=== PATIENT | male | born 1965 | race Caucasian/White ===

== ENCOUNTER 2018-10-29 21:49 | Emergency (ER) | payer OTHER, MEDICAID, SELFPAY ==
[2018-10-29 21:56] VITALS: BP 151/104; PULSE 113; RESP 22; TEMP 36.6; O2SAT 98; BMI 38.4
--- NOTE | 2018-10-29 22:02 | DI.RAD.S_ITS ---
PROCEDURE: XR RIBS LT MIN 3V W CXR1V INDICATIONS: L anterior chest/rib pain after fall TECHNIQUE: 2 views of the left ribs were acquired, along with a single view chest. COMPARISON: None. FINDINGS: Surgical changes and devices: Postoperative changes of the left shoulder. Bones and chest wall: No fractures or dislocations. No suspicious bony lesions. Overlying soft tissues appear unremarkable. Lungs and pleura: No pleural effusions or pneumothorax. Lungs appear clear. Mediastinum: Mediastinal contours appear normal. Heart size is normal. IMPRESSION: No acute cardiopulmonary abnormalities. No acute rib fractures identified. Dictated by: Jer Nassar M.D. on 10/30/2018 at 8:50 Approved by: Jer Nassar M.D. on 10/30/2018 at 8:51
[2018-10-29 22:48] VITALS: BP 130/81; PULSE 93; RESP 19; O2SAT 92
--- NOTE | 2018-10-29 22:52 | ED_ITS ---
HPI - Back Pain/Injury General Chief Complaint: Back Pain/Injury Stated Complaint: Fell, hurt side Time Seen by Provider: 10/29/18 21:57 Source: patient Mode of arrival: ambulatory Limitations: no limitations History of Present Illness HPI Narrative: 53-year-old male smoker without significant medical history presents with a chief complaint of left anterior chest pain after a ground level fall in which he landed on his anterior chest. He denies any cough or shortness of breath. He has superficial abrasions and some pain with palpation. He denies any head neck or back pain. He is otherwise well and free of complaints. MD Complaint: fall Onset (ago): minute(s) Duration: constant Similar Symptoms Previously: No Severity: mild Quality: burning Radiation: none Context: fall and trauma Associated symptoms: denies other symptoms Related Data Previous Rx's Medication Instructions Recorded ibuprofen 600 mg PO TID-QID PRN #20 tab 10/29/18 Review of Systems Constitutional Denies chills, Denies fever(s), Denies lethargy and Denies weakness Eyes Denies change in vision, Denies eye discharge, Denies irritation and Denies loss of vision ENT Ears, Nose, Mouth, and Throat: Denies change in voice, Denies neck pain and Denies sore throat Cardiovascular Denies chest pain, Denies irregular heart rhythm, Denies lightheadedness, Denies palpitations, Denies dyspnea, Denies dyspnea on exertion and Denies orthopnea Respiratory Denies cough, Denies dyspnea, Denies dyspnea on exertion and Denies wheezing Gastrointestinal Gastrointestinal: Denies abdominal pain, Denies change in bowel habits, Denies diarrhea, Denies nausea and Denies vomiting Genitourinary Denies hematuria, Denies flank pain, Denies urinary incontinence and Denies urinary urgency Musculoskeletal Denies neck pain Integumentary/Breasts Denies pruritus, Denies erythema, Denies rash and Reports wounds Neurologic Denies confusion, Denies loss of vision and Denies weakness Psychiatric Denies anxiety, Denies confusion, Denies depression, Denies homicidal ideation and Denies suicidal ideation Endocrine Denies palpitations Hematologic/Lymphatic Denies easy bruising Allergic/Immunologic Denies wheezing PFSH Social History Smoking Status: Current every day smoker Social History Smoking Status: Current every day smoker Exam Narrative Exam Narrative: GENERAL: This is a well-nourished, well-developed patient, in mild distress. A and O x3 G CS 15 HEAD: Atraumatic. Normocephalic. No temporal or scalp tenderness. EYES: Pupils equal round and reactive. Extraocular motions intact. No scleral icterus. No injection or drainage. ENT: Nose without bleeding, purulent drainage or septal hematoma. Throat without erythema, tonsillar hypertrophy or exudate. Uvula midline. Airway patent. NECK: Trachea midline. No JVD or lymphadenopathy. Supple, nontender, no meningeal signs. CARDIOVASCULAR: Superficial abrasions to anterior chest, no crepitance or subcu emphysema noted Regular rate and rhythm without murmurs, gallops, or rubs. RESPIRATORY: Clear to auscultation. Breath sounds equal bilaterally. No wheezes, rales, or rhonchi. GASTROINTESTINAL: Abdomen soft, non-tender, nondistended. No hepato- splenomegaly, or palpable masses. No guarding. EXTREMITIES: No clubbing, cyanosis, or edema. No joint tenderness, effusion, or edema noted. BACK: Nontender without deformity or crepitance. No flank tenderness. NEURO: AOx3. SKIN: No rash or erythema. Initial Vital Signs Initial Vital Signs: Vital Signs Temperature 98 F 10/29/18 21:56 Pulse Rate 113 H 10/29/18 21:56 Respiratory Rate 22 10/29/18 21:56 Blood Pressure 151/104 H 10/29/18 21:56 Pulse Oximetry 98 10/29/18 21:56 Course Orders Ordered: ED Orders 10/29/18 22:02 XR ribs LT min 3V w CXR1V Stat Vital Signs - 8 hr 10/29/18 21:56 10/29/18 22:48 10/29/18 23:00 Temperature 98 F Pulse Rate 113 H 93 H 91 H Respiratory Rate 22 19 18 Blood Pressure 151/104 H 118/74 Blood Pressure [Right Arm] 130/81 Pulse Oximetry 98 92 97 MDM - Back Pain/Injury Imaging Data Chest x-ray: Attestation: I personally reviewed and interpreted this imaging study as follows: My impression: no fx, no ptx Discharge Plan Departure Patient Disposition: Home Clinical Impression: Contusion of chest wall Qualifiers: Encounter type: initial encounter Laterality: left Qualified Code(s): S20.212A - Contusion of left front wall of thorax, initial encounter Discharge Date/Time: 10/29/18 23:00 Interventions: ED Discharge Assessment Last Done: 10/29/18 23:00 Instructions: DI for Contusion, DI for Abrasion Activity Restrictions/Additional Instructions: *You have been diagnosed with [left-sided anterior chest wall abrasion and contusion] *What to do: *Take medications as directed: Tylenol or Motrin for pain *Follow up with your primary care provider in 2-3 days, call for an appointment. Let them know you were seen in the Emergency Department and that we ask that you be seen in follow up *Return to ER if you should have any new, worsening or concerning symptoms Radiographic study has been interpreted by an emergency physician. The official diagnosis by radiology will be performed within the next 24 hours and should there be any change in outcome we will notify you of how to proceed. Prescriptions: New ibuprofen 600 mg tablet 600 mg PO TID-QID PRN (Reason: pain) Qty: 20 RF: 0
[2018-10-29 23:00] VITALS: BP 118/74; PULSE 91; RESP 18; O2SAT 97
--- NOTE | 2018-10-29 23:08 | PC.NURSE ---
PT states back pain and anterior chest pain after glf from truck bed. Pt has abrasions to left chest. Pt denies LOC, any head or neck pain or difficulty breathing.
== END 2018-10-29 23:00 | disposition home or self-care (01) ==
PROVIDERS: Emergency Provider Emergency Medicine
DX: S20.212A Contusion of left front wall of thorax, initial encounter (principal); W19.XXXA Unspecified fall, initial encounter
CPT/HCPCS: 71101; 99282; 99283

== ENCOUNTER 2019-03-02 14:02 | Observation (INO) | payer OTHER, MEDICAID, SELFPAY ==
[2019-03-02] VITALS (9 sets, daily range): BP systolic 119–148; BP diastolic 7–92; PULSE 78–118; RESP 14–20; TEMP 36.3–37.2; O2SAT 92–100; BMI 36.9
--- NOTE | 2019-03-02 | DI.ECHO.S_ITS ---
[facility]---------+ [facility] +---------+ : : [address] [place] : : : : [id number] : : : : Phone: [phone] Echocardiogram Report + + :Name: SHAYLA MIRANDA Study Date: 03/03/2019 Height: 69 in : :[facility] Exam Location: [facility] Weight: 250 lb : : Gender: Male BSA: 2.3 m2 : :: 1965 Age: 53 yrs BP: 147/83 mmHg: :Reason For Study: CHEST PAIN : : Performed By: Porfirio Singer : :Referring: JAMILA HERNANDEZ : + + Interpretation Summary Normal sinus rhythm. Normal LV size, wall thickness, wall motion and left ventricular systolic function. Ejection fraction is 60-65%. No evidence of diastolic dysfunction. Normal chamber sizes. No significant valvular abnormalities. Mildly dilated ascending aorta. No prior study for comparison. Procedure: A two-dimensional transthoracic echocardiogram with color flow and Doppler was performed. The study quality was technically adequate. There is no prior echocardiogram noted for this patient. The patient was in normal sinus rhythm during the exam. Left Ventricle: The left ventricle is normal in size. There is normal left ventricular wall thickness. The ejection fraction is estimated to be 60-65%. There are no focal wall motion abnormalities. Right Ventricle: The right ventricle is normal in size and function. Atria: Both atria are normal in size. The interatrial septum is intact with no evidence for an atrial septal defect. Mitral Valve: The mitral valve is normal in structure and function. There is no mitral regurgitation noted. Aortic Valve: The aortic valve is trileaflet. The aortic valve opens well. No aortic regurgitation is present. Tricuspid Valve: The tricuspid valve is normal in structure and function. No tricuspid regurgitation. Pulmonary artery pressures cannot be estimated because of the lack of a measurable TR jet velocity. Pulmonic Valve: The pulmonic valve is not well seen, but is grossly normal. There is trace pulmonic regurgitation. Great Vessels: The aortic root is normal size. The ascending aorta is mildly enlarged. The pulmonary artery is normal size. The IVC is of normal diameter and collapses greater than 50% with a sniff. This suggests a low right atrial pressure of 3 mm Hg. Pericardium/ Pleura There is no pericardial effusion. There is no pleural effusion. MMode/2D Measurements & Calculations LVIDd: 4.6 cm LVOT diam: 2.2 cm LVIDs: 3.2 cm Ao root diam: 3.6 cm FS: 30.7 % Aortic Jxn: 2.9 cm EPSS: 0.97 cm asc Aorta Diam: 3.8 cm IVSd: 0.86 cm Ao Arch Diam (Prox Trans): 2.8 cm LVPWd: 0.98 cm LV hermosillo. diameter/BSA (cm/m^2): 2.0 LV sys. diameter/BSA (cm/m^2): 1.4 LA dimension: 3.4 cm RA long axis: 4.4 cm LA A2 area: 19.2 cm2 RA area: 15.2 cm2 LA A4 area: 13.1 cm2 RA vol: 44.6 ml LA length (vol): 4.1 cm RA : 19.6 ml/m2 LA vol: 52.0 ml IVC diam: 1.5 cm LA vol index: 22.9 ml/m2 Doppler Measurements & Calculations Ao V2 max: 123.0 cm/sec LVOT Max Gagandeep: 88.4 cm/sec Ao V2 mean: 96.7 cm/sec LV V1 max P.1 mmHg Ao max P.1 mmHg LV V1 VTI: 15.4 cm Ao mean P.0 mmHg SUNNI(I,D): 2.9 cm2 Ao V2 VTI: 20.9 cm SUNNI(V,D): 2.8 cm2 sev ratio: 0.74 SUNNI indexed to BSA (cm^2/m^2): 1.3 MV E max gagandeep: 59.4 cm/sec PA V2 max: 72.2 cm/sec MV A max gagandeep: 77.9 cm/sec PA V2 mean: 54.8 cm/sec MV E/A: 0.76 PA mean P.3 mmHg Med Peak E' Gagandeep: 5.7 cm/sec PA pr(Accel): 54.0 mmHg E/E' med: 10.5 PA Accel Time: 0.05 sec Lat Peak E' Gagandeep: 9.3 cm/sec E/E' lat: 6.4 E/e' average: 8.4 MV dec time: 0.22 sec SV(LVOT): 60.6 ml Electronically signed by: Lidia Mendenhall M.D. on Reading Physician:03/03/2019 06:14 PM
--- NOTE | 2019-03-02 14:05 | ED.CHESTPAIN ---
HPI - Chest Pain General Chief Complaint: Chest Pain Stated Complaint: Chest pain Time Seen by Provider: 03/02/19 14:03 Source: patient Mode of arrival: EMS Limitations: no limitations History of Present Illness HPI narrative: Patient is a 53-year-old male who arrived by EMS. He is here for evaluation of chest pain. He was at a doctor's appointment for his father when while they were at that appointment he started to have sharp left-sided retrosternal chest pain. Not worse with palpation or movement. Not worse with breathing. Did become diaphoretic. He was given 2 sprays of nitroglycerin by the office staff which the patient states resolved his symptoms. He has never had anything like this before. Upon my evaluation patient states that he feels much better. No prior cardiac history. Related Data Home Medications Medication Instructions Recorded Confirmed albuterol sulfate [ProAir HFA] 1 puff INHALATION PRN PRN 03/02/19 03/02/19 fluticasone propionate 1 spray INTRANASAL PRN PRN 03/02/19 03/02/19 Allergies Allergy/AdvReac Type Severity Reaction Status Date / Time No Known Drug Allergies Allergy Verified 03/02/19 14:09 Review of Systems Constitutional Constitutional: Denies fever(s) and Denies malaise Cardiovascular Cardiovascular: Reports chest pain and Denies dyspnea Respiratory Respiratory: Denies dyspnea Gastrointestinal Gastrointestinal: Denies abdominal pain, Reports nausea and Denies vomiting Genitourinary Genitourinary: Denies dysuria Musculoskeletal Musculoskeletal: Denies myalgias and Denies arthralgias Integumentary/Breasts Skin/Breast: Denies rash Comments: Diaphoresis Neurologic Neurologic: Denies abnormal speech and Denies behavioral changes Psychiatric Psychiatric: Denies behavioral changes Hematologic/Lymphatic Hematologic/Lymphatic: Denies easy bleeding and Denies easy bruising Allergic/Immunologic Allergic/Immunologic: Denies urticaria Patient History Medical History Medical History COPD (chronic obstructive pulmonary disease) (Acute) Social History Social History Smoking Status: Former smoker alcohol intake frequency: a few times a week Substance Use Type: methamphetamine Exam Initial Vital Signs Initial Vital Signs: Vital Signs Temperature 98.3 F 03/02/19 14:06 Pulse Rate 112 H 03/02/19 14:06 Respiratory Rate 20 03/02/19 14:06 Blood Pressure 140/84 03/02/19 14:06 Pulse Oximetry 97 03/02/19 14:06 Const General: cooperative, diaphoretic and ill appearing Orientation: alert, awake and oriented x3 HENMT Head: normal to inspection and normocephalic Chest Chest: normal inspection of the chest, No crepitus and No tenderness Resp Effort & Inspection: normal respiratory effort Auscultation: clear to auscultation bilaterally Cardio Rate: tachycardic Rhythm: regular rhythm Pulses: radial pulses present GI Inspection: non-distended Palpation: soft, No firm and No tender Back/Spine/Pelvis Back: No CVA tenderness Skin Lesions: no lesions Rashes: no rashes Other: Diaphoretic Neuro General: alert and awake Cognition: normal cognition Speech: speech normal Extrem General: normal to inspection and capillary refill normal Psych Appearance: grossly normal and well kempt Scores GCS [place] coma scale eye opening: Spontaneous [place] coma scale verbal response: Orientated Jeanette coma scale motor response: Obey commands [place] coma scale total score: 15 HEART Score Heart Score history: Highly Suspicious Heart Score EKG: Non-Specific repolarization disturbance Heart Score Age: 45-64 years old Heart Score risk factors: No known risk factors Heart Score troponin: < or = to normal limit Heart Score Total: 4 Course Orders Ordered: ED Orders 03/02/19 13:55 B Type Natriuretic Peptide Stat Complete Blood Count AUTO DIFF Stat Comprehensive Metabolic Panel Stat D Dimer Stat Lipase Stat Partial Thromboplastin Time Stat Procalcitonin Stat Prothrombin Time INR Stat Troponin I Stat 03/02/19 14:04 XR chest 1V Stat EKG-12 Lead Stat 03/02/19 14:45 CT angio chest PE protocol Stat Discontinued Medications Aspirin (Aspirin Chew) 324 mg PO NOW ONE Stop: 03/02/19 18:29 Sodium Chloride (Normal Saline 0.9%) 1,000 mls @ 1,000 mls/hr IV BOLUS ONE Stop: 03/02/19 15:44 Last Infusion: 03/02/19 16:16 Dose: 0 mls/hr Documented by: Admin: 03/02/19 15:03 Dose: 1,000 mls/hr Documented by: SELINA Vital Signs Vital signs: Vital Signs - 8 hr 03/02/19 14:06 03/02/19 14:10 03/02/19 15:00 Temperature 98.3 F Pulse Rate 112 H 118 H 87 Respiratory Rate 20 15 Blood Pressure 140/84 Blood Pressure [Left Arm] 125/92 H 129/81 Blood Pressure [Right Arm] 140/84 Pulse Oximetry 97 92 03/02/19 15:30 03/02/19 16:00 Temperature Pulse Rate 80 78 Respiratory Rate 14 17 Blood Pressure Blood Pressure [Left Arm] 128/72 125/7 L Blood Pressure [Right Arm] Pulse Oximetry 97 100 MDM - Chest Pain Lab Data Attestation: I reviewed the patient's lab results. Result diagrams: 03/02/19 13:55 03/02/19 13:55 Labs: Lab Results 03/02/19 03/02/19 03/02/19 Range/Units 13:55 13:55 13:55 WBC 8.0 (4.5-11.0) X10^3/uL RBC 5.26 (4.5-5.9) X10^6/uL Hgb 15.3 (13.5-17.5) g/dL Hct 44.8 (41-53) % MCV 85.1 (80-100) fL MCH 29.2 (26-34) PG MCHC 34.3 (30-36) % RDW 13.6 (11.6-14.8) % Plt Count 183 (150-400) X10^3/uL Neut % (Auto) 81.2 H (50-75) % Lymph % (Auto) 7.5 L (25-40) % [place] % (Auto) 9.5 (3-14) % Eos % (Auto) 1.3 L (2-4) % Baso % (Auto) 0.5 (0-2) % Neut # (Auto) 6500 (2222-0722) /uL Lymph # (Auto) 600 L (8377-0926) /uL [place] # (Auto) 800 (0-900) /uL Eos # (Auto) 100 (0-450) /uL Baso # (Auto) 0 (0-100) /uL PT 18.6 H (10.1-12.7) SECONDS INR 1.6 H (0.9-1.3) APTT 32 (26.4-36.2) SECONDS D-Dimer (<230) ng/mL Sodium 138 (137-145) mmol/L Potassium 4.0 (3.4-5.1) mmol/L Chloride 98 (98-107) mmol/L Carbon Dioxide 29 (22-32) mmol/L BUN 13 (9-20) mg/dL Creatinine 0.90 (0.66-1.25) mg/dL Estimated GFR > 60.0 (>60) mL/min BUN/Creatinine Ratio 14.4 (6-22) Glucose 99 (70-100) mg/dL Calcium 9.1 (8.4-10.2) mg/dL Total Bilirubin 0.6 (0.2-1.3) mg/dL AST 32 (17-59) IU/L ALT 26 (21-72) IU/L Alkaline Phosphatase 86 (38-126) U/L Troponin I < 0.012 (0.01-0.034) ng/mL B-Natriuretic Peptide < 100 (<100) Total Protein 7.8 (6.3-8.2) g/dL Albumin 4.5 (3.5-5.0) g/dL Globulin 3.3 (1.7-4.1) g/dL Albumin/Globulin Ratio 1.4 (1.0-2.8) Lipase 58 (23-300) U/L Procalcitonin (<0.5) ng/mL 03/02/19 03/02/19 Range/Units 13:55 13:55 WBC (4.5-11.0) X10^3/uL RBC (4.5-5.9) X10^6/uL Hgb (13.5-17.5) g/dL Hct (41-53) % MCV (80-100) fL MCH (26-34) PG MCHC (30-36) % RDW (11.6-14.8) % Plt Count (150-400) X10^3/uL Neut % (Auto) (50-75) % Lymph % (Auto) (25-40) % [place] % (Auto) (3-14) % Eos % (Auto) (2-4) % Baso % (Auto) (0-2) % Neut # (Auto) (8143-6485) /uL Lymph # (Auto) (5367-8713) /uL [place] # (Auto) (0-900) /uL Eos # (Auto) (0-450) /uL Baso # (Auto) (0-100) /uL PT (10.1-12.7) SECONDS INR (0.9-1.3) APTT (26.4-36.2) SECONDS D-Dimer 342 H (<230) ng/mL Sodium (137-145) mmol/L Potassium (3.4-5.1) mmol/L Chloride (98-107) mmol/L Carbon Dioxide (22-32) mmol/L BUN (9-20) mg/dL Creatinine (0.66-1.25) mg/dL Estimated GFR (>60) mL/min BUN/Creatinine Ratio (6-22) Glucose (70-100) mg/dL Calcium (8.4-10.2) mg/dL Total Bilirubin (0.2-1.3) mg/dL AST (17-59) IU/L ALT (21-72) IU/L Alkaline Phosphatase (38-126) U/L Troponin I (0.01-0.034) ng/mL B-Natriuretic Peptide (<100) Total Protein (6.3-8.2) g/dL Albumin (3.5-5.0) g/dL Globulin (1.7-4.1) g/dL Albumin/Globulin Ratio (1.0-2.8) Lipase (23-300) U/L Procalcitonin 0.11 (<0.5) ng/mL Imaging Data Chest x-ray: Radiologist's impression: [address] [address] XRay Report Signed Patient: Brenden Rodgers [facility]#: [id number] : 1965Acct:[id number] Age/Sex: 53 / MDate of Service: 03/02/19 Loc: ED Accession Number: [id number] Procedure: XR chest 1V Ordering Provider: Marshall Ordaz D.O. PROCEDURE: XR CHEST 1V INDICATIONS: SOB TECHNIQUE: One view of the chest was acquired. COMPARISON: None. FINDINGS: Surgical changes and devices: Jazmine/anchors at the left glenohumeral joint. Lungs and pleura: Lungs are clear. No pleural effusions or pneumothorax. Mediastinum: Mediastinal contours appear normal. Heart size is normal. Bones and chest wall: No suspicious bony lesions. Overlying soft tissues appear unremarkable. IMPRESSION: No acute cardiopulmonary abnormality. Dictated by: Rico Villagomez M.D. on 03/02/2019 at 14:35 Approved by: Rico Villagomez M.D. on 03/02/2019 at 14:37 CT scan - chest: Radiologist's impression: [address] [address] [address] Scan Report Signed Patient: Brenden Rodgers [facility]#: [id number] : 1965Acct:[id number] Age/Sex: 53 / MDate of Service: 03/02/19 Loc: ED Accession Number: [id number] Procedure: CT angio chest PE protocol Ordering Provider: Marshall Ordaz D.O. PROCEDURE: CT ANGIO CHEST PE PROTOCOL INDICATIONS: Chest pain, shortness of breath, tachycardia TECHNIQUE: After the administration of intravenous contrast, 2 mm thick sections acquired from the pulmonary apices to the posterior costophrenic angles. 3-dimensional maximum intensity projection (MIP) coronal and sagittal reformats were then acquired through the thorax. For radiation dose reduction, the following was used: automated exposure control, adjustment of mA and/or kV according to patient size. COMPARISON: CXR earlier today, 08/19/2018. FINDINGS: Image quality: Excellent. Pulmonary arteries: Pulmonary arteries are normal in size, and demonstrate no intraluminal filling defects to the level of the subsegmental pulmonary arteries to suggest pulmonary embolism. Lungs and pleura: Lungs are clear. No pleural effusions or pneumothorax. Central and peripheral airways are patent. Mediastinum: Heart size is normal, without pericardial effusion. No mediastinal or hilar adenopathy. Thoracic aorta is normal in caliber and enhancement. No acute aortic syndrome. Esophagus is normal in caliber. Small hiatal hernia. Bones and chest wall: No suspicious bony lesions. Ribs and thoracic spine appear intact throughout. Thyroid gland is unremarkable. No axillary or supraclavicular adenopathy. Abdomen: Visualized upper abdominal solid organs appear normal in the early arterial phase of enhancement. IMPRESSION: 1. No pulmonary embolism. 2. No acute airspace opacity. 3. No acute aortic syndrome. Dictated by: Rico Villagomez M.D. on 03/02/2019 at 15:01 Approved by: Rico Villagomez M.D. on 03/02/2019 at 15:06 ECG Data Attestation: I personally reviewed and interpreted this ECG as follows: Prior ECG tracings: available for review Interpretation: Sinus tachycardia Ventricular rate of 100 Normal axis Normal QRS Normal QTC Nonspecific ST T wave changes Comparison EKG provided by EMS. Unchanged from emergency department EKG except heart rate was 108 MDM Narrative Medical decision making narrative: Upon arrival patient was symptom-free however was still diaphoretic. Has nonspecific ST T wave changes on his EKG. His initial troponin was negative. CT scan of chest shows no signs of pulmonary embolism and no aortic pathology. Patient does have a heart score of 4. Does have a history of COPD however symptoms today are not consistent with a COPD exacerbation. I did discuss the case with Dr. maldonado who accepts patient for observation for continued evaluation treatment. Discussed the admission with the patient who expressed understanding and agreement. Discharge Plan Departure Patient Disposition: Admitted as Observation Clinical Impression: Chest pain Qualifiers: Chest pain type: unspecified Qualified Code(s): R07.9 - Chest pain, unspecified Discharge Date/Time: 03/02/19 18:19 Admit Date/Time: 03/02/19 16:17 Admit Provider: Karen Maldonado
[2019-03-02 14:12] LABS: Add Manual Diff / Slide Review NO; Basophils Absolute Auto 0 /uL (0-100); Basophils Percent Auto 0.5 % (0-2); Eosinophils Absolute Auto 100 /uL (0-450); Eosinophils Percent Auto 1.3 % (2-4); Hematocrit 44.8 % (41-53); Hemoglobin 15.3 g/dL (13.5-17.5); Lymphocytes Absolute Auto 600 /uL (1100-4500); Lymphocytes Percent Auto 7.5 % (25-40); Mean Corpuscular HGB Conc 34.3 % (30-36); Mean Corpuscular Hemoglobin 29.2 PG (26-34); Mean Corpuscular Volume 85.1 fL (80-100); Monocytes Absolute Auto 800 /uL (0-900); Monocytes Percent Auto 9.5 % (3-14); Neutrophils Absolute Auto 6500 /uL (1500-7000); Neutrophils Percent Auto 81.2 % (50-75); Platelet Count 183 X10^3/uL (150-400); Red Blood Cell Count 5.26 X10^6/uL (4.5-5.9); Red Cell Distribution Width 13.6 % (11.6-14.8)
[2019-03-02 14:19] LABS: INR 1.6 (0.9-1.3); Prothrombin Time 18.6 SECONDS (10.1-12.7)
[2019-03-02 14:21] LABS: PTT Partial Thromboplastin Tim 32 SECONDS (26.4-36.2)
[2019-03-02 14:29] LABS: B Type Natriuretic Peptide < 100 (<100); D Dimer 342 ng/mL (<230)
[2019-03-02 14:31] LABS: Alanine Aminotransferase 26 IU/L (21-72); Albumin 4.5 g/dL (3.5-5.0); Albumin Globulin Ratio 1.4 (1.0-2.8); Alkaline Phosphatase 86 U/L (38-126); Aspartate Aminotransferase 32 IU/L (17-59); BUN Creatinine Ratio 14.4 (6-22); Bilirubin Total 0.6 mg/dL (0.2-1.3); Blood Urea Nitrogen 13 mg/dL (9-20); Calcium 9.1 mg/dL (8.4-10.2); Carbon Dioxide 29 mmol/L (22-32); Chloride 98 mmol/L (98-107); Estimated Glomerular Filt Rate > 60.0 mL/min (>60); Globulin 3.3 g/dL (1.7-4.1); Glucose 99 mg/dL (70-100); HEMOLYSIS 18 (0-50); Lipase 58 U/L (23-300); Sodium 138 mmol/L (137-145); Total Protein 7.8 g/dL (6.3-8.2)
[2019-03-02 14:42] LABS: Troponin I < 0.012 ng/mL (0.01-0.034)
--- NOTE | 2019-03-02 14:45 | DI.CT.S_ITS ---
PROCEDURE: CT ANGIO CHEST PE PROTOCOL INDICATIONS: Chest pain, shortness of breath, tachycardia TECHNIQUE: After the administration of intravenous contrast, 2 mm thick sections acquired from the pulmonary apices to the posterior costophrenic angles. 3-dimensional maximum intensity projection (MIP) coronal and sagittal reformats were then acquired through the thorax. For radiation dose reduction, the following was used: automated exposure control, adjustment of mA and/or kV according to patient size. COMPARISON: CXR earlier today, 08/19/2018. FINDINGS: Image quality: Excellent. Pulmonary arteries: Pulmonary arteries are normal in size, and demonstrate no intraluminal filling defects to the level of the subsegmental pulmonary arteries to suggest pulmonary embolism. Lungs and pleura: Lungs are clear. No pleural effusions or pneumothorax. Central and peripheral airways are patent. Mediastinum: Heart size is normal, without pericardial effusion. No mediastinal or hilar adenopathy. Thoracic aorta is normal in caliber and enhancement. No acute aortic syndrome. Esophagus is normal in caliber. Small hiatal hernia. Bones and chest wall: No suspicious bony lesions. Ribs and thoracic spine appear intact throughout. Thyroid gland is unremarkable. No axillary or supraclavicular adenopathy. Abdomen: Visualized upper abdominal solid organs appear normal in the early arterial phase of enhancement. IMPRESSION: 1. No pulmonary embolism. 2. No acute airspace opacity. 3. No acute aortic syndrome. Dictated by: Rico Villagomez M.D. on 03/02/2019 at 15:01 Approved by: Rico Villagomez M.D. on 03/02/2019 at 15:06
[2019-03-02] MEDS: SODIUM CHLORIDE 0.9% 1,000 ML 1000 ML IV (15:03)
[2019-03-02 15:23] LABS: Procalcitonin 0.11 ng/mL (<0.5)
[2019-03-02 17:33] LABS: Troponin I < 0.012 ng/mL (0.01-0.034)
--- NOTE | 2019-03-02 20:15 | PC.NURSE ---
Admission/Evening Shift NOte-
[2019-03-02 20:16] LABS: Magnesium 2.1 mg/dL (1.6-2.3)
--- NOTE | 2019-03-02 20:16 | PC.NURSE ---
Admission/Evening Shift Note- [facility]. Admission questions done, home medications reviewed, and physical assessment completed. Patientorineted to bed and bed controls, room, bathroom, lights, menu, phone, and call enriquez/tv remote. Patiehnt agree to call as needed for assistance. Call arpita marquez phone within reach. will contnue to monitot
--- NOTE | 2019-03-02 20:24 | P.HP_ITS ---
History of Present Illness History of Present Illness Date Patient Seen: 03/02/19 Time Patient Seen: 19:58 Chief complaint: Chest pain Narrative: Mr. Brenden Rodgers is a 53-year-old male patient history significant for COPD and past smoker and history of methamphetamine use who was at a medical appointment with his father and developed chest pain. The patient describes a sensation feeling that his heart ?was trying to push out. He reports no radiation of the pain and had no nausea with the event but had nausea yesterday. He denies palpitations and has no exacerbating or relieving factors. The patient was given nitroglycerin x2 with resolution of his pain. Patient reports increased fatigue for the last few days, a dry nonproductive cough as well as chills. Patient reports no prior cardiac history though he does acknowledge methamphetamine use with his last use this morning. Patient denies headache or dizziness, but does complain of mild sore throat. He has had no prior chest pain before today's event has no history of palpitations. 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 He denies abdominal pain, has no nausea vomiting denies changes in bowel habits. He does report a slow urinary stream but no hematuria or burning. Upon arrival in the ER the patient is afebrile with temperature 98.3?, tachycardic at 112, blood pressure of 140/84, respirations 15 saturating 90% on room air. Twelve lead EKG is obtained finding sinus tachycardia with a ventricular rate of 100 without ectopy or block, left atrial enlargement-P mitrale with notched P wave, no ST changes or T-wave inversion. Chest x-ray is obtained which is unremarkable with no acute pulmonary or cardiac pathology, CT was obtained which was negative for PE or acute aortic syndrome. On laboratory analysis he has white count of 8.0, hemoglobin 15.3, hematocrit of 44.8 with electrolytes within normal range and a BUN of 13 and creatinine of 0.9. His liver functions within normal limits His nonfasting glucose is 99. His somewhat coagulopathic with a PT of 18.6 and an INR of 1.6 and PTT 32. Procalcitonin is 0.11 and he has had 2 troponins less than 0.012. The patient is admitted to the hospital for acute coronary syndrome. Patient History Medical History (Updated 03/02/19 @ 20:51 by DENILSON Bernardo) COPD (chronic obstructive pulmonary disease) (Acute) Dislocation of left shoulder joint (Acute) Methamphetamine use (Acute) Surgical History History of shoulder surgery (Acute) Social History Smoking Status: Former smoker Family & Social History Family History (Updated 03/02/19 @ 20:53 by DENILSON Bernardo) Father Hypertension Heavy smoker Mother Cancer Brother Medical history unknown Safety & Behavioral: Feels Safe in Current Yes Environment Been Physically Hurt or No Threatened By a Person Tobacco & Substance use: Smoking Status Former smoker alcohol intake frequency a few times a week Substance Use Type does not use,methamphetamine Comment: The patient is single and lives in a single family home with his father. 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 Smoking: Quit in 2009 before which he smoked 1 and half packs per day. Alcohol: Occasional alcohol consumption, patient states a few beers a month. Substance use: Uses methamphetamine, last use this morning. Advanced directives: Patient has no formal advanced directives. In direct conversation the patient states wishes to be FULL CODE. He designates his father or Henry Mir to be surrogate decision makers. Meds Home Medications and Allergies Home Medications Medication Instructions Recorded Confirmed Type albuterol sulfate [ProAir HFA] 1 puff INHALATION PRN PRN 03/02/19 03/02/19 History fluticasone propionate 1 spray INTRANASAL PRN PRN 03/02/19 03/02/19 History Allergies Allergy/AdvReac Type Severity Reaction Status Date / Time No Known Drug Allergies Allergy Verified 03/02/19 14:09 Review of Systems Review of Systems ROS Unobtainable: All systems reviewed & are unremarkable except as noted in HPI and below Exam Vital Signs (past 8 hours): - 03/02/19 14:06 03/02/19 14:10 03/02/19 15:00 Temperature 98.3 F Pulse Rate 112 H 118 H 87 Respiratory Rate 20 15 Blood Pressure 140/84 Blood Pressure [Left Arm] 125/92 H 129/81 Blood Pressure [Right Arm] 140/84 Pulse Oximetry 97 92 03/02/19 15:30 03/02/19 16:00 03/02/19 17:26 Temperature Pulse Rate 80 78 79 Respiratory Rate 14 17 18 Blood Pressure Blood Pressure [Left Arm] 128/72 125/7 L 124/83 Blood Pressure [Right Arm] Pulse Oximetry 97 100 98 03/02/19 19:06 Temperature 97.6 F Pulse Rate 100 H Respiratory Rate 20 Blood Pressure 119/81 Blood Pressure [Left Arm] Blood Pressure [Right Arm] Pulse Oximetry 93 Oxygen Delivery Method Room Air Narrative Exam Narrative: GENERAL APPEARANCE: well developed, obese male with BMI 35.6, in no acute distress. HEAD: Normocephalic, atraumatic, no scalp lesions. EYES: pupils equal, round, reactive to light and accommodation, sclera anicteric, extraocular movement intact without nystagmus. EARS: normal external structures, no ear pain NOSE: sinuses non tender to percussion, no rhinorrhea ORAL CAVITY: mucosa moist without lesions or exudate, missing left 2 front teeth, tongue in midline. THROAT: normal, no erythema, no exudate, posterior pharynx without erythema, uvula midline. NECK/THYROID: neck supple, no jugular venous distention, no carotid bruit, no thyromegaly, trachea midline. LYMPH NODES: no cervical or supraclavicular lymphadenopathy. SKIN: warm and dry, no suspicious lesions, no rashes, good turgor. HEART: regular rate and rhythm, S1-S2 faint systolic murmur, no rubs or gallops, brisk capillary refill, no edema LUNGS: Scattered wheezes bilaterally, upper lobes greater than lower, no coarseness or crackles, dry nonproductive cough. CHEST: Symmetrical movement, no accessory muscle use, no pain to AP and lateral compression. ABDOMEN: Soft, no distention, no abdominal tenderness on palpation, no guarding or peritoneal signs, no organomegaly, active bowel tones. EXTREMITIES: moves all extremities, strength is 5/5 and symmetrical, no deformities or joint effusions. NEUROLOGIC: AAO x4, no focal neurologic deficits, sensation intact to light touch, hearing grossly normal to speech. PSYCH: alert, cognitive function intact, hyperverbal, pressured speech, fidgety Objective Labs Result Diagrams: 03/02/19 13:55 03/02/19 13:55 Labs: Laboratory Results - last 24 hr 03/02/19 03/02/19 03/02/19 13:55 13:55 13:55 WBC 8.0 RBC 5.26 Hgb 15.3 Hct 44.8 MCV 85.1 MCH 29.2 MCHC 34.3 RDW 13.6 Plt Count 183 Neut % (Auto) 81.2 H Lymph % (Auto) 7.5 L [place] % (Auto) 9.5 Eos % (Auto) 1.3 L Baso % (Auto) 0.5 Neut # (Auto) 6500 Lymph # (Auto) 600 L [place] # (Auto) 800 Eos # (Auto) 100 Baso # (Auto) 0 PT 18.6 H INR 1.6 H APTT 32 D-Dimer Sodium 138 Potassium 4.0 Chloride 98 Carbon Dioxide 29 BUN 13 Creatinine 0.90 Estimated GFR > 60.0 BUN/Creatinine Ratio 14.4 Glucose 99 Calcium 9.1 Magnesium Total Bilirubin 0.6 AST 32 ALT 26 Alkaline Phosphatase 86 Troponin I < 0.012 B-Natriuretic Peptide < 100 Total Protein 7.8 Albumin 4.5 Globulin 3.3 Albumin/Globulin Ratio 1.4 Lipase 58 Procalcitonin 03/02/19 03/02/19 03/02/19 13:55 13:55 17:03 WBC RBC Hgb Hct MCV MCH MCHC RDW Plt Count Neut % (Auto) Lymph % (Auto) [place] % (Auto) Eos % (Auto) Baso % (Auto) Neut # (Auto) Lymph # (Auto) [place] # (Auto) Eos # (Auto) Baso # (Auto) PT INR APTT D-Dimer 342 H Sodium Potassium Chloride Carbon Dioxide BUN Creatinine Estimated GFR BUN/Creatinine Ratio Glucose Calcium Magnesium Total Bilirubin AST ALT Alkaline Phosphatase Troponin I < 0.012 B-Natriuretic Peptide Total Protein Albumin Globulin Albumin/Globulin Ratio Lipase Procalcitonin 0.11 03/02/19 17:03 WBC RBC Hgb Hct MCV MCH MCHC RDW Plt Count Neut % (Auto) Lymph % (Auto) [place] % (Auto) Eos % (Auto) Baso % (Auto) Neut # (Auto) Lymph # (Auto) [place] # (Auto) Eos # (Auto) Baso # (Auto) PT INR APTT D-Dimer Sodium Potassium Chloride Carbon Dioxide BUN Creatinine Estimated GFR BUN/Creatinine Ratio Glucose Calcium Magnesium 2.1 Total Bilirubin AST ALT Alkaline Phosphatase Troponin I B-Natriuretic Peptide Total Protein Albumin Globulin Albumin/Globulin Ratio Lipase Procalcitonin Assessment & Plan Assessment & Plan narrative: This is a 53-year-old male patient who was admitted to the hospital for rule out acute coronary syndrome in the setting of recent me thamphetamine use and no prior cardiac history. Patient is currently chest pain-free. 1. Acute coronary syndrome, present on admission, active -patient with left chest pain, nonradiating with associated diaphoresis today resolved with nitroglycerin x2. No prior history or significant family history per patient report. -12 lead EKG: Sinus tachycardia without ectopy, no ischemic changes. Troponins in the ER negative at less than 0.012 x2. -patient does admit to methamphetamine use this morning prior to onset of chest pain, tox screen is ordered and pending. -electrolytes are within normal limits, -will obtain echocardiogram with evidence of left atrial enlargement on EKG, faint murmur on auscultation. -cardiac stress test. -patient reports dysphagia with sensation of food getting stuck but not present at this time nor associated with the patient's episode of chest pain. This can be evaluated further as an outpatient. -pantoprazole 40 mg daily 2. Chronic obstructive pulmonary disease without hypoxemia, present on admission, active. -patient reports increasing shortness of breath for 1 week, he has not used his albuterol inhaler. -respiratory therapy to consult and treat. -DuoNeb every 4 hours as needed. -continue patient's home regimen of ProAir albuterol inhaler at 2 puffs every 4 hours as needed. 3. Acute bronchitis, present on admission, active -He has a sore throat, scattered wheezing, dry nonproductive cough and chills. -white count is 8.0 and procalcitonin is 0.11. -symptoms are consistent with viral syndrome will obtain a respiratory PCR. -will treat symptomatically as needed. The patient is admitted to the hospital following an occurrence of chest pain r elieved with nitro and associated risks of adverse events and complications. Patient is admitted as observation with expected length of stay less than 2 midnights. Scores GCS Jeanette coma scale eye opening: Spontaneous Rainelle coma scale verbal response: Orientated Jeanette coma scale motor response: Obey commands Rainelle coma scale total score: 15 Quality VTE Deep Vein Thrombosis/Pulmonary Embolism Present on Admission: No
[2019-03-02 20:29] LABS: UR Morphine/Opiate cutoff 300 Negative (Negative); Ur Creatinine Normal (Normal); Ur Specific Gravity Normal (Normal); Urine Amphetamines Positive (Negative); Urine Barbiturates Negative (Negative); Urine Benzodiazepines Negative (Negative); Urine Cocaine Negative (Negative); Urine MDMA Negative (Negative); Urine Methadone Negative (Negative); Urine Methamphetamines Positive (Negative); Urine Oxycodone Negative (Negative); Urine Phencyclidine Negative (Negative); Urine Tetrahydrocannabinol Positive (Negative); Urine Tricyclic Antidepressant Negative (Negative); Urine pH Normal (Normal)
[2019-03-02] MEDS: SODIUM CHLORIDE 0.9% 1,000 ML 50 ML IV (22:15)
[2019-03-02] MEDS: ASPIRIN 81 MG CHEW TAB 324 MG PO (22:15)
[2019-03-02] MEDS: PANTOPRAZOLE 20 MG TABLET 40 MG PO (22:16)
[2019-03-02] MEDS: ATORVASTATIN 20 MG TABLET PO (22:16)
[2019-03-03 00:18] LABS: Adenovirus Not Detected (Not Detect); Bordetella pertussis Not Detected (Not Detect); Chlamydophila pneumoniae Not Detected (Not Detect); Coronavirus 229E Not Detected (Not Detect); Coronavirus HKU1 Not Detected (Not Detect); Coronavirus NL 63 Not Detected (Not Detect); Coronavirus OC43 Not Detected (Not Detect); Human Metapneumovirus Not Detected (Not Detect); Human Rhinovirus/Enterovirus Not Detected (Not Detect); Influenza A Not Detected (Not Detect); Influenza B Not Detected (Not Detect); Mycoplasma pneumoniae Not Detected (Not Detect); Parainfluenza Virus 1 Not Detected (Not Detect); Parainfluenza Virus 2 Not Detected (Not Detect); Parainfluenza Virus 3 Not Detected (Not Detect); Parainfluenza Virus 4 Not Detected (Not Detect); Respiratory Syncytial Virus Not Detected (Not Detect)
[2019-03-03 01:28] VITALS: O2SAT 80
[2019-03-03 01:30] VITALS: O2SAT 97
[2019-03-03 04:19] VITALS: BP 141/98; PULSE 94; RESP 18; TEMP 36.5; O2SAT 92
[2019-03-03 05:56] LABS: Add Manual Diff / Slide Review NO; Basophils Absolute Auto 0 /uL (0-100); Basophils Percent Auto 0.3 % (0-2); Eosinophils Absolute Auto 100 /uL (0-450); Eosinophils Percent Auto 2.1 % (2-4); Hematocrit 42.6 % (41-53); Hemoglobin 14.7 g/dL (13.5-17.5); Lymphocytes Absolute Auto 600 /uL (1100-4500); Lymphocytes Percent Auto 9.9 % (25-40); Mean Corpuscular HGB Conc 34.4 % (30-36); Mean Corpuscular Hemoglobin 29.7 PG (26-34); Mean Corpuscular Volume 86.3 fL (80-100); Monocytes Absolute Auto 800 /uL (0-900); Monocytes Percent Auto 11.6 % (3-14); Neutrophils Absolute Auto 5000 /uL (1500-7000); Neutrophils Percent Auto 76.1 % (50-75); Platelet Count 140 X10^3/uL (150-400); Red Blood Cell Count 4.93 X10^6/uL (4.5-5.9); Red Cell Distribution Width 13.7 % (11.6-14.8); White Blood Cell Count 6.5 X10^3/uL (4.5-11.0)
[2019-03-03 06:03] LABS: Blood Urea Nitrogen 12 mg/dL (9-20); Calcium 8.7 mg/dL (8.4-10.2); Carbon Dioxide 29 mmol/L (22-32); Chloride 101 mmol/L (98-107); Cholesterol 120 mg/dL (140-199); Estimated Glomerular Filt Rate > 60.0 mL/min (>60); Glucose 114 mg/dL (70-100); HDL Cholesterol 21 mg/dL (40-60); HEMOLYSIS < 15 (0-50); LDL Cholesterol Calculated 72 mg/dL (<100); Potassium 4.6 mmol/L (3.4-5.1); Sodium 138 mmol/L (137-145); Triglycerides 136 mg/dL (35-150)
[2019-03-03] MEDS: PANTOPRAZOLE 20 MG TABLET PO (06:06)
[2019-03-03 06:17] LABS: Troponin I < 0.012 ng/mL (0.01-0.034)
[2019-03-03] MEDS: ASPIRIN EC 81 MG TABLET PO (08:37)
[2019-03-03] MEDS: ENOXAPARIN 40 MG/0.4 ML SYRINGE SUBCUT (08:38)
[2019-03-03 09:00] VITALS: BP 147/83; PULSE 89; RESP 18; TEMP 36.7; O2SAT 96
[2019-03-03 11:02] VITALS: O2SAT 98
--- NOTE | 2019-03-03 12:31 | PM.TREADMILL ---
Cardiac Stress Test Report Referral & Results Date Patient Seen: 03/03/19 Time Patient Seen: 12:31 Requesting provider: Alphonse Goncalves Indication: Chest discomfort Rest ECG: Unremarkable Procedure Note: Today following both written and verbal informed consent the patient was exercised according to a standard Cesar protocol patient went for a total of 7 minutes 51 seconds achieving a maximum heart rate of 147 maximum systolic blood pressure of 185. This is approximately 10.1 METS. Exercise was terminated at this point because of targets were met, patient could have continued longer on the treadmill to reach absolute maximum stress. Patient was also given Cardiolite through a previously started Hep-Lock IV by the diagnostic imaging staff approximately 1 minute prior to the cessation of exercise. No ST-T segment changes Rare to occasional PAC Functional aerobic impairment rated about 10% of the sedentary scale although patient could have continued longer, so I doubt there is actually any impairment Impression: No ECG evidence of ischemia Probably average or normal exercise capacity Please see perfusion imaging report as well Please note: Actual ECG tracings can be found in the PACS system.
--- NOTE | 2019-03-03 12:56 | PC.NURSE ---
Day Shift- Pt A&OX4, able to make his needs known using call light. Bed alarm on. Denies chest pain or pressure or any similar pain that was present for admission reason. Pt does state having non radiating, distressing pain to bilateral upper chest. No respiratory distress noted. O2 sat decreased to 82% on RA at 1030 while sleeping. 2L NC applied and O2 sat increased to 92%. Talked with pt about sleep apnea and information added to discharge paperwork on sleep apnea and sleep study's. Pt states already having an appointment made with his PCP Dr. Phillips. [place] dept called and pt is allowed to eat breakfast, then NPO for Stress test around 1200. Pt finished eating breakfast around 0850, then NPO, pt had no chocolate or caffeine. Echo complete around 1205. Pt then taken to RI stress test via wheelchair at 1210.
[2019-03-03 15:31] VITALS: BP 149/86; PULSE 96; RESP 20; TEMP 36.9; O2SAT 96
--- NOTE | 2019-03-03 15:36 | CM.DANOTE ---
Discharge Planning/Care Management DCP: assessment: case received, EMR reviewed. Discussed in Team Rounds. Pt is a 53 year old male who admitted to care of hospitalist team late yesterday afternoon after chest pain while sitting with his father at the physicians office while his father was having an appt. Payer: [employer] PCP: Dr. Chanel Phillips He is currently being worked up for same. Tox screen is + for methamphetamines and pt does admit to same. Pt at this time says he has been in many drug rehab programs and currently I don't have a problem, I don't do this daily. It's just that I am taking care of my dad all the time and I get exhausted. I used some yesterday and got the chest pain and now look at me. Dr. Villeda is following pt today and said he will likely d/c to home setting. He says he is hopeful for this but I feel pretty sick. He has o2 in place and is noticeably diaphoretic. Did also speak with pt re his father who was admitted to at same time he was yesterday. He does say he knows his father will only be at home, says it has been very hard to get him to eat anything but he does his best trying to keep him clean. He's real stubborn and won't let us do very much for him. He says his brother Everette lives at the house but is currently in detention. A roommate Jacob lives there too and he helps me with my dad. Asked about drug use by the others. He says rare and never in the home by anyone. OF NOTE: Case was discussed with CM team including information systems manager and NEURO PSYCH SALES SPECIALIST on for the day. The advice was to keep this case on the [facility] nurse desk to help with coordination of plan with pt's father, also assigned to [facility] nurse desk. Pt is very agreeable to be present at the 1330 info visit with his father tomorrow in his father's room. [facility] team will check in again tomorrow if he is still here. CM Discharge Assessment Start: 03/03/19 15:34 Freq: Status: Active Protocol: Document 03/03/19 15:35 ITV (Rec: 03/03/19 15:36 ITV [id number]) Discharge Planning Assessment Advance Directives? No History Provided By Patient,Medical Record Prior Living Arrangements House Independent with ADL's Yes Is patient alert and oriented? Yes Whiteboard Updated in Patient Room with Yes name and ext. # of Electrician Sound Review Status In Process
--- NOTE | 2019-03-03 17:49 | DI.NM.S_ITS ---
DATE OF SERVICE: 03/03/2019 PROCEDURE: Exercise perfusion study. INDICATIONS: Chest pain, left arm pain, palpitations, history of methamphetamine use, COPD. RADIOPHARMACEUTICAL: 22.6 mCi of technetium-99m Myoview IV was injected at stress. This is an exercise perfusion study only. CARDIAC STRESS: Patient underwent exercise perfusion study under the supervision of an attending staff. He walked on Cesar protocol for 7 minutes 51 seconds, achieved 89% of target heart rate, and normal blood pressure response. Baseline EKG revealed sinus rhythm. Stress EKG did not reveal any obvious inducible ischemic changes. There were no significant arrhythmias. No significant symptoms were reported. RAW DATA: There was increased of diaphragmatic activity. Patient's weight is 241 pounds GATED STUDY: Stress LV ejection fraction 73% without any obvious wall motion abnormalities. Stress end-diastolic volume is 102 mL. Lung/heart ratio is 0.26, which is within normal limits. MYOCARDIAL PERFUSION SCAN: Stress supine revealed moderate-sized severely decreased perfusion of inferior wall, which got completely resolved during prone images suggestive of diaphragmatic tissue attenuation artifact. Perfusion images revealed normal myocardial perfusion. CONCLUSION: I will call this study a normal myocardial perfusion study with evidence of diaphragmatic tissue attenuation artifact which got resolved during prone images. His functional aerobic impairment is +10%. Left ventricular (LV) function is preserved. Overall, this is a low-risk myocardial perfusion scan. Brenden Rodgers - FRANCISCO/alisha/ab doc#: [id number]/job#: [id number] dd: 03/03/2019 17:10:00 dt: 03/03/2019 17:40:00 DICTATING /COPIES TO: Herminia Min MD COPIES MNE: KEITH
[2019-03-03] MEDS: INFLUENZA VACCINE 0.5 ML SYRINGE IM (17:52)
--- NOTE | 2019-03-03 18:11 | CM.DANOTE ---
Discharge information was shared with patient and his signature was obtained on the Discharge Patient Sign Form. He states he understands his discharge instructions and his follow up appointment information. He states he understand the diagnostic results from his exams. He has all of his belongings and is calling a friend to pick him up. He ate 100 % of his evening meal and received a flu shot.
--- NOTE | 2019-03-04 07:20 | P.DS_ITS ---
History of Present Illness History of Present Illness Date Patient Seen: 03/03/19 Chief complaint: Chest pain Narrative: Mr. Brenden Rodgers is a 53-year-old male patient history significant for COPD and past smoker and history of methamphetamine use who was at a medical appointment with his father and developed chest pain. The patient describes a sensation feeling that his heart ?was trying to push out. He reports no radiation of the pain and had no nausea with the event but had nausea yesterday. He denies palpitations and has no exacerbating or relieving factors. The patient was given nitroglycerin x2 with resolution of his pain. Patient reports increased fatigue for the last few days, a dry nonproductive cough as well as chills. Patient reports no prior cardiac history though he does acknowledge methamphetamine use with his last use this morning. Patient denies headache or dizziness, but does complain of mild sore throat. He has had no prior chest pain before today's event has no history of palpitations. 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 He denies abdominal pain, has no nausea vomiting denies changes in bowel habits. He does report a slow urinary stream but no hematuria or burn ing. Upon arrival in the ER the patient is afebrile with temperature 98.3?, tachycardic at 112, blood pressure of 140/84, respirations 15 saturating 90% on room air. Twelve lead EKG is obtained finding sinus tachycardia with a ventricular rate of 100 without ectopy or block, left atrial enlargement-P mitrale with notched P wave, no ST changes or T-wave inversion. Chest x-ray is obtained which is unremarkable with no acute pulmonary or cardiac pathology, CT was obtained which was negative for PE or acute aortic syndrome. On laboratory analysis he has white count of 8.0, hemoglobin 15.3, hematocrit of 44.8 with electrolytes within normal range and a BUN of 13 and creatinine of 0.9. His li moni functions within normal limits His nonfasting glucose is 99. His somewhat coagulopathic with a PT of 18.6 and an INR of 1.6 and PTT 32. Procalcitonin is 0.11 and he has had 2 troponins less than 0.012. The patient is admitted to the hospital for acute coronary syndrome. 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 Chest Pain 2. Methamphetamine Abuse 3. COPD Hospital Course: Patient was admitted to the hospital for evaluation of Chest Pain. Patient had no further symptoms of chest pain during his hospital stay. He underwent stress testing which showed no evidence of reversible ischemia. The patient was deemed appropriate for discharge and discharged home. He was advised to discontinue methamphetamine as this likely was the cause of his chest pain. The patient will follow up with his PCP for further evaluation Exam Vital Signs (past 8 hours): Oxygen Delivery Method Room Air Oxygen Flow Rate 0 Narrative Exam Narrative: Pleasant Male in No Acute Distress Lungs: decreased breath sounds but clear CV: RRR Nl SlS2 Abd: Soft non tender/ non distended, no HSM Ext: no edema Objective Labs Result Diagrams: 03/03/19 05:30 03/03/19 05:30 Discharge Plan Discharge Plan Patient Disposition: Home Discharge Med Rec/Prescriptions Prescriptions: Continued albuterol sulfate [ProAir HFA] 90 mcg/actuation HFA aerosol inhaler 1 puff INHALATION PRN PRN (Reason: Shortness Of Breath) RF: 0 fluticasone propionate 50 mcg/actuation spray,suspension 1 spray INTRANASAL PRN PRN (Reason: Allergy Symptoms) RF: 0 Follow up/Referrals: Chanel Phillips MD [Primary Care Provider] - As previously scheduled (You stated you had an appointment on March 08) Provider Discharge Instructions Diet: Diet as Tolerated Visit Report/Discharge Packet Instructions: Polysomnography, Sleep Apnea, DI for Heart Failure Discharge Data Primary Care Provider: Chanel Phillips Discharges patient from system. Discharge Date/Time: 03/03/19 18:31 Quality VTE Deep Vein Thrombosis/Pulmonary Embolism Present on Admission: No
== END 2019-03-03 18:31 | disposition home or self-care (01) ==
LOC: ED 16:13 → AC 16:18
PROVIDERS: Nurse Practitioner Adult Health; Admitting Provider Internal Medicine; Emergency Provider Emergency Medicine; PCP Family Medicine; Visit Provider Internal Medicine
DX: R07.9 Chest pain, unspecified (principal); F15.10 Other stimulant abuse, uncomplicated; J44.9 Chronic obstructive pulmonary disease, unspecified; Z87.891 Personal history of nicotine dependence; Z23 Encounter for immunization
CPT/HCPCS: 36415; 71045; 71275; 78451; 78452; 80048; 80053; 80061; 80305; 83690; 83735; 83880; 84145; 84484; 85025; 85379; 85610; 85730; 87633; 90471; 90656; 93005; 93016; 93017; 93018; 93306; 94762; 96360; 96361; 96372; 99283; 99285; G0378; A9502; J1650; Q2038

== ENCOUNTER 2020-06-18 12:53 | Inpatient (IN) | payer OTHER, MEDICAID, SELFPAY ==
[2019-03-02 18:30] VITALS: BMI 36.9
[2020-06-18] VITALS (22 sets, daily range): BP systolic 126–144; BP diastolic 66–95; PULSE 83–110; RESP 12–29; TEMP 36.3–37.5; O2SAT 85–98; BMI 38.3
--- NOTE | 2020-06-18 13:20 | DI.RAD.S_ITS ---
PROCEDURE: XR CHEST 1V INDICATIONS: suspected sepsis TECHNIQUE: One view of the chest was acquired. COMPARISON: [facility], CR, XR CHEST 1 VIEW, 06/08/2019, 3:53. [facility], CR, XR CHEST 1 VIEW, 04/07/2019, 9:55. [facility], CR, XR CHEST 1V, 03/02/2019, 14:23. FINDINGS: Surgical changes and devices: Postoperative change of the left glenoid can be seen. Lungs and pleura: An incomplete inspiratory result is noted, causing a crowded appearance to the lung markings. No pneumothorax or significant pleural effusions are seen. Minimal patchy areas of interstitial consolidation can be seen at the lung bases. Mediastinum: The cardiac contours are within normal limits. The aorta demonstrates calcification and tortuosity. Bones and chest wall: No suspicious bony lesions. Age-appropriate bony degenerative changes are seen. Overlying soft tissues appear unremarkable. IMPRESSION: Minimal patchy areas of interstitial consolidation can be seen at the lung bases. Please consider atelectasis versus atypical infiltrate, including COVID pneumonia. If clinically appropriate, a short-term followup chest series (with PA and lateral views) performed in deep inspiration is suggested for further evaluation. Dictated by: Christiano Larry M.D. on 06/18/2020 at 12:58 Approved by: Christiano Larry M.D. on 06/18/2020 at 12:59
[2020-06-18 13:33] LABS: Add Manual Diff / Slide Review NO; Basophils Absolute Auto 100 /uL (0-100); Basophils Percent Auto 1.5 % (0-2); Eosinophils Absolute Auto 100 /uL (0-450); Eosinophils Percent Auto 1.1 % (2-4); Hematocrit 39.2 % (41-53); Hemoglobin 12.9 g/dL (13.5-17.5); INR 2.2 (0.9-1.3); Lymphocytes Absolute Auto 1000 /uL (1100-4500); Lymphocytes Percent Auto 10.3 % (25-40); Mean Corpuscular HGB Conc 32.9 % (30-36); Mean Corpuscular Hemoglobin 28.2 PG (26-34); Mean Corpuscular Volume 85.7 fL (80-100); Monocytes Absolute Auto 700 /uL (0-900); Neutrophils Absolute Auto 7900 /uL (1500-7000); Neutrophils Percent Auto 80.1 % (50-75); Platelet Count 229 X10^3/uL (150-400); Prothrombin Time 24.6 SECONDS (10.1-12.7); Red Blood Cell Count 4.57 X10^6/uL (4.5-5.9); White Blood Cell Count 9.9 X10^3/uL (4.5-11.0)
[2020-06-18 13:36] LABS: PTT Partial Thromboplastin Tim 38 SECONDS (26.4-36.2)
[2020-06-18 13:37] LABS: Lactate (Lactic Acid) 1.3 mmol/L (0.7-2.1)
[2020-06-18 13:38] LABS: Alanine Aminotransferase 15 IU/L (<50); Albumin Globulin Ratio 1.2 (1.0-2.8); Alkaline Phosphatase 62 U/L (38-126); Aspartate Aminotransferase 22 IU/L (17-59); BUN Creatinine Ratio 18.4 (6-22); Bilirubin Total 0.7 mg/dL (0.2-1.3); Blood Urea Nitrogen 19 mg/dL (9-20); Carbon Dioxide 34 mmol/L (22-32); Chloride 99 mmol/L (98-107); Estimated Glomerular Filt Rate > 60.0 mL/min (>60); Globulin 3.4 g/dL (1.7-4.1); Glucose 120 mg/dL (70-100); HEMOLYSIS < 15 (0-50); Lipase 63 U/L (23-300); Potassium 4.3 mmol/L (3.4-5.1); Sodium 135 mmol/L (137-145); Total Protein 7.4 g/dL (6.3-8.2)
[2020-06-18 13:50] LABS: Creatine Kinase 114 U/L (55-170)
[2020-06-18] MEDS: SODIUM CHLORIDE 0.9% 1,000 ML 125 ML IV (13:55)
[2020-06-18] MEDS: DEXAMETHASONE 10 MG/ML VIAL IV (13:55)
--- NOTE | 2020-06-18 13:59 | ED.SOB ---
HPI - SOB/Dyspnea <DENILSON Jade - Last Filed: 06/18/20 16:26> General Chief Complaint: Shortness of Breath/Dyspnea Stated Complaint: +COVID, CHEST PAIN STARTED THIS MORNING Time Seen by Provider: 06/18/20 13:03 Source: patient Mode of arrival: Wheelchair Limitations: no limitations History of Present Illness HPI Narrative: This is a 55 year male, former smoker, who has past medical history significant for COPD, hypertension, obesity, recently diagnosed with COVID 13 days ago with chief complain of pleuritic chest pain, increased short of breath and extreme fatigue. Patient reports pleuritic mid chest pain started at 6 this morning when he woke up which worsens with taking deep breaths. Patient also reports some tingling on left finger tips. COVID symptoms started on the 16 (2 wks ago) with loss of taste and smell is, headache, short of breath, chest congestion, sore throat and subjective fever and chills. Patient has been taking [id number] NyQuil and natural cough syrups at home. Patient quit smoking 2009, he smokes pots. Quit smoking meth Dec 2019. PCP [facility] at [facility]. Related Data Home Medications Medication Instructions Recorded Confirmed albuterol sulfate [ProAir HFA] 1 puff INHALATION PRN PRN 03/02/19 06/18/20 fluticasone propionate 1 spray INTRANASAL PRN PRN 03/02/19 06/18/20 Allergies Allergy/AdvReac Type Severity Reaction Status Date / Time No Known Drug Allergies Allergy Verified 03/02/19 14:09 Review of Systems <DENILSON Jade - Last Filed: 06/18/20 16:26> Review of Systems Narrative: General: See HPI HEENT: Denies sinus pain, ear pain, sore throat, difficulty swallowing, dizziness. Respiratory: See HPI Cardiovascular: See HPI Gastrointestinal: Denies nausea, vomiting, abdominal pain, diarrhea, constipation, melena. : Denies dysuria, frequency, incontinence, hematuria, urinary retention. Musculoskeletal: Denies weakness, joint pain or bony pain. Skin: Denies rash, skin lesions, or other. Neurologic: Denies weakness, headache, (+) left finger tip numbness, change in speech, confusion, seizures, incoordination. Psychiatric: No concerning psychosocial issues. 12-point review of systems is negative except for those stated above. Patient History <DENILSON Jade - Last Filed: 06/18/20 16:26> Medical History COPD (chronic obstructive pulmonary disease) Dislocation of left shoulder joint Hypertension Methamphetamine use Surgical History History of shoulder surgery Family History Father Hypertension Heavy smoker Mother Cancer Brother Medical history unknown Social History household members: none Smoking Status: Former smoker alcohol intake: former Smoking Status: Former smoker tobacco type: cigarettes alcohol intake frequency: a few times a week Substance Use Type: marijuana and methamphetamine (Quit December 2019) Exam <DENILSON Jade - Last Filed: 06/18/20 16:26> Narrative Exam Narrative: GEN: Alert, oriented x 3, well appearing and nourished, and in no significant acute respiratory distress. Head: Normal cephalic, atraumatic. No scalp or temporal tenderness, palpable mass or rash. EYES: Pupils are equal, round, and reactive to light and accommodation. Extraocular muscles are intact bilaterally. There is no subconjunctival hemorrhage, exudate and sclera non-icteric. ENT: Bilateral auditory canals semi occluded with cerumen and difficulty visualizing tympanic membranes. Hearing grossly intact. Nose without bleeding, purulent discharge or deviation. Facial sinuses nontender to palpate. Mucous membrane moist, no mucosal lesion. Throat without erythema, tonsillar hypertrophy or exudate. Uvula in midline, airway patent. Neck: Trachea in midline. No JVD, non-tender without lymphadenopathy. No masses or thyroid megaly. Supple, non-tender and no meningeal signs. CARDIAC: Normal regular rate and rhythm without murmurs, gallops, or rubs. No chest wall tenderness. No peripheral edema, cyanosis or pallor. Capillary refill is less than 2 seconds. RESPIRATORY: Lungs expiratory wheezing in bilateral lobes. Intermittent cough. No rales or rhonchi. No stridor, no increase work of breathing, no tachypnea or accessary muscle used. Is able to speak long sentences without pause. ABD: Abdomen soft, nontender and non-distended. No guarding or rebound tenderness to palpate. Bowel sounds are normal in all 4 quadrants. There is no palpable masses or organomegaly. EXT: Full painless ROM of all extremities with no loss of sensation, strength, effusion or edema. SKIN: Warm, dry, normal color for patient. No erythema, lesions or rash over visible areas. BACK: Nontender without deformity or crepitance. No flank tenderness. NEUROLOGICAL: Alert and oriented to place, time and person. Sensation and motor function intact bilaterally. No facial droops, dysphasia. PSYCHIATRIC: Good judgement and reason, without hallucinations, abnormal affect or abnormal behaviors during the examination. Patient is not suicidal. Initial Vital Signs Initial Vital Signs: Vital Signs Temperature 99.5 F 06/18/20 12:53 Pulse Rate 110 H 06/18/20 12:53 Respiratory Rate 26 H 06/18/20 12:53 Blood Pressure 135/84 06/18/20 12:53 Pulse Oximetry 91 06/18/20 12:53 <Janette Izaguirre DO - Last Filed: 06/19/20 07:16> Initial Vital Signs Initial Vital Signs: Vital Signs Temperature 99.5 F 06/18/20 12:53 Pulse Rate 110 H 06/18/20 12:53 Respiratory Rate 26 H 06/18/20 12:53 Blood Pressure 135/84 06/18/20 12:53 Pulse Oximetry 91 06/18/20 12:53 Scores <JENELLE JadeP - Last Filed: 06/18/20 16:26> ABCD2 Citation: Nieshaid-GRAM critical illness risk score 195, 89.5% risk of critical illnesss, high risk GCS Savannah coma scale eye opening: Spontaneous Jeanette coma scale verbal response: Orientated Savannah coma scale motor response: Obey commands Jeanette coma scale total score: 15 qSOFA Altered Mental Status (GCS <15): No Respiratory rate greater than/equal to 22: Yes Systolic blood pressure less than or equal to 100: No qSOFA Total: 1 0-1 Not High Risk 1-3 High risk Course <DENILSON Jade - Last Filed: 06/18/20 16:26> Orders Ordered: Acetaminophen (Acetaminophen 325 Mg Tablet) 650 mg PO Q6HR PRN PRN Reason: Fever/Mild Pain (1-3) Albuterol (Albuterol Hfa Mdi 60 Puff/8 Gm Inhaler) 2 puff INH RTQ4HR PRN PRN Reason: Shortness Of Breath Last Admin: 06/18/20 19:44 Dose: 2 puff Documented by: LISANDRA Bisacodyl (Bisacodyl 10 Mg Supp) 10 mg CA DAILY PRN PRN Reason: Constipation Dexamethasone (Dexamethasone 10 Mg/Ml Vial) 6 mg IV DAILY [facility] Docusate Sodium (Docusate 100 Mg Capsule) 100 mg PO BID [facility] Last Admin: 06/18/20 20:43 Dose: 100 mg Documented by: RABIA Enoxaparin Sodium (Enoxaparin 40 Mg/0.4 Ml Syringe) 40 mg SUBCUT DAILY [facility] Remdesivir 100 mg/ Sodium (Chloride) 250 mls @ 250 mls/hr IV DAILY@1400 [facility] Ibuprofen (Ibuprofen 600 Mg Tablet) 600 mg PO Q6HR PRN PRN Reason: Fever/Mild Pain (1-3) Magnesium Hydroxide (Magnesium Hydroxide 30 Ml Udc) 30 ml PO DAILY PRN PRN Reason: Constipation Naloxone HCl (Naloxone 0.4 Mg/Ml Vial) 0.2 mg IV Q2MIN PRN PRN Reason: Opiate Reversal Ondansetron HCl (Ondansetron 4 Mg/2 Ml Inj) 4 mg IV Q8HR PRN PRN Reason: Nausea And Vomiting Pantoprazole Sodium (Pantoprazole 20 Mg Tablet) 20 mg PO 0600 [facility] Last Admin: 06/19/20 05:59 Dose: 20 mg Documented by: PALMER Fluticasone/Salmeterol (Fluticasone/Salmeterol 500/50 60 Puff Diskus) 1 puff INH RTBID [facility] Last Admin: 06/18/20 19:45 Dose: 1 puff Documented by: LISANDRA Sennosides (Sennosides 8.6 Mg Tablet) 17.2 mg PO BEDTIME [facility] Last Admin: 06/18/20 20:43 Dose: 17.2 mg Documented by: RABIA Sodium Chloride (Sodium Chloride 0.9% Flush) 10 ml IV PRN PRN PRN Reason: Flush Sodium Chloride (Sodium Chloride 0.9% Flush) 10 ml IV BID [facility] Last Admin: 06/18/20 20:43 Dose: 10 ml Documented by: RABIA Discontinued Medications Albuterol (Albuterol Hfa Mdi 60 Puff/8 Gm Inhaler) 4 puff INH NOW ONE Stop: 06/18/20 13:44 Last Admin: 06/18/20 18:33 Dose: Not Given Documented by: RABIA Dexamethasone (Dexamethasone 10 Mg/Ml Vial) 10 mg IV NOW ONE Stop: 06/18/20 13:51 Last Admin: 06/18/20 13:55 Dose: 10 mg Documented by: CYRUS Sodium Chloride (Normal Saline 0.9%) 1,000 mls @ 125 mls/hr IV CONT JAEL Last Infusion: 06/18/20 16:08 Dose: 0 mls/hr Documented by: Admin: 06/18/20 13:55 Dose: 125 mls/hr Documented by: CYRUS Remdesivir 200 mg/ Sodium (Chloride) 250 mls @ 250 mls/hr IV NOW ONE Stop: 06/18/20 13:51 Last Infusion: 06/18/20 16:08 Dose: 0 mls/hr Documented by: Admin: 06/18/20 14:59 Dose: 250 mls/hr Documented by: MAGDY Reevaluation(s) Reevaluation #1: O2 Sat decreased to low 80's which does not sustained long and mostly 88-90% in RA at rest. Providing O2 by NC on 2 L, self-prone. Added IV dexamethasone, Remsivir 200mg, Albuterol inhaler. Time: 13:50 Reevaluation #2: Patient sleeping with snoring and O2 sat from 93-98% on 2L NC. Time: 15:50 Consultations Consultation #1: Dr. Macias consulted for admission to inpatient with Covid symptoms with short of breath and pleuritic chest pain requiring IV steroids, Remdesivir and O2 by NC therapy. Increased inflammatory markers of LDH of 776, CRP of 5.2. D dimer is within normal for his age of 89. Time: 14:40 Vital Signs Vital signs: Vital Signs - 8 hr 06/18/20 12:53 06/18/20 13:25 06/18/20 13:30 Temperature 99.5 F Pulse Rate 110 H 105 H 104 H Respiratory Rate 26 H 21 29 H Blood Pressure 135/84 126/73 Pulse Oximetry 91 91 91 06/18/20 13:45 06/18/20 13:48 06/18/20 14:00 Temperature Pulse Rate 96 H 93 H 100 H Respiratory Rate 20 26 H 19 Blood Pressure 130/75 134/80 Pulse Oximetry 89 L 85 L 92 06/18/20 14:15 06/18/20 14:30 06/18/20 14:45 Temperature Pulse Rate 91 H 96 H 90 Respiratory Rate 20 21 18 Blood Pressure 127/76 Pulse Oximetry 94 96 94 <Janette Izaguirre, DO - Last Filed: 06/19/20 07:16> Orders Ordered: Acetaminophen (Acetaminophen 325 Mg Tablet) 650 mg PO Q6HR PRN PRN Reason: Fever/Mild Pain (1-3) Albuterol (Albuterol Hfa Mdi 60 Puff/8 Gm Inhaler) 2 puff INH RTQ4HR PRN PRN Reason: Shortness Of Breath Last Admin: 06/18/20 19:44 Dose: 2 puff Documented by: LISANDRA Bisacodyl (Bisacodyl 10 Mg Supp) 10 mg CA DAILY PRN PRN Reason: Constipation Dexamethasone (Dexamethasone 10 Mg/Ml Vial) 6 mg IV DAILY [facility] Docusate Sodium (Docusate 100 Mg Capsule) 100 mg PO BID [facility] Last Admin: 06/18/20 20:43 Dose: 100 mg Documented by: RABIA Enoxaparin Sodium (Enoxaparin 40 Mg/0.4 Ml Syringe) 40 mg SUBCUT DAILY [facility] Remdesivir 100 mg/ Sodium (Chloride) 250 mls @ 250 mls/hr IV DAILY@1400 [facility] Ibuprofen (Ibuprofen 600 Mg Tablet) 600 mg PO Q6HR PRN PRN Reason: Fever/Mild Pain (1-3) Magnesium Hydroxide (Magnesium Hydroxide 30 Ml Udc) 30 ml PO DAILY PRN PRN Reason: Constipation Naloxone HCl (Naloxone 0.4 Mg/Ml Vial) 0.2 mg IV Q2MIN PRN PRN Reason: Opiate Reversal Ondansetron HCl (Ondansetron 4 Mg/2 Ml Inj) 4 mg IV Q8HR PRN PRN Reason: Nausea And Vomiting Pantoprazole Sodium (Pantoprazole 20 Mg Tablet) 20 mg PO 0600 [facility] Last Admin: 06/19/20 05:59 Dose: 20 mg Documented by: PALMER Fluticasone/Salmeterol (Fluticasone/Salmeterol 500/50 60 Puff Diskus) 1 puff INH RTBID [facility] Last Admin: 06/18/20 19:45 Dose: 1 puff Documented by: LISANDRA Sennosides (Sennosides 8.6 Mg Tablet) 17.2 mg PO BEDTIME [facility] Last Admin: 06/18/20 20:43 Dose: 17.2 mg Documented by: RABIA Sodium Chloride (Sodium Chloride 0.9% Flush) 10 ml IV PRN PRN PRN Reason: Flush Sodium Chloride (Sodium Chloride 0.9% Flush) 10 ml IV BID [facility] Last Admin: 06/18/20 20:43 Dose: 10 ml Documented by: RABIA Discontinued Medications Albuterol (Albuterol Hfa Mdi 60 Puff/8 Gm Inhaler) 4 puff INH NOW ONE Stop: 06/18/20 13:44 Last Admin: 06/18/20 18:33 Dose: Not Given Documented by: RABIA Dexamethasone (Dexamethasone 10 Mg/Ml Vial) 10 mg IV NOW ONE Stop: 06/18/20 13:51 Last Admin: 06/18/20 13:55 Dose: 10 mg Documented by: CYRUS Sodium Chloride (Normal Saline 0.9%) 1,000 mls @ 125 mls/hr IV CONT JALE Last Infusion: 06/18/20 16:08 Dose: 0 mls/hr Documented by: Admin: 06/18/20 13:55 Dose: 125 mls/hr Documented by: CYRUS Remdesivir 200 mg/ Sodium (Chloride) 250 mls @ 250 mls/hr IV NOW ONE Stop: 06/18/20 13:51 Last Infusion: 06/18/20 16:08 Dose: 0 mls/hr Documented by: Admin: 06/18/20 14:59 Dose: 250 mls/hr Documented by: MAGDY Vital Signs Vital signs: Vital Signs - 8 hr 06/18/20 12:53 06/18/20 13:25 06/18/20 13:30 Temperature 99.5 F Pulse Rate 110 H 105 H 104 H Respiratory Rate 26 H 21 29 H Blood Pressure 135/84 126/73 Pulse Oximetry 91 91 91 06/18/20 13:45 06/18/20 13:48 06/18/20 14:00 Temperature Pulse Rate 96 H 93 H 100 H Respiratory Rate 20 26 H 19 Blood Pressure 130/75 134/80 Pulse Oximetry 89 L 85 L 92 06/18/20 14:15 06/18/20 14:30 06/18/20 14:45 Temperature Pulse Rate 91 H 96 H 90 Respiratory Rate 20 21 18 Blood Pressure 127/76 Pulse Oximetry 94 96 94 MDM - SOB/Dyspnea <Fabio BrennaDENILSON - Last Filed: 06/18/20 16:26> Differential Diagnosis Differential diagnosis: Likely other (COVID, PE, ACS, pneumonia) Medical Records Attestation: I reviewed the patient's medical records. Lab Data Attestation: I reviewed the patient's lab results. Result diagrams: 06/18/20 21:20 06/18/20 21:20 Labs: Lab Results 06/18/20 06/18/20 06/18/20 Range/Units 13:12 13:12 13:12 WBC 9.9 (4.5-11.0) X10^3/uL RBC 4.57 (4.5-5.9) X10^6/uL Hgb 12.9 L (13.5-17.5) g/dL Hct 39.2 L (41-53) % MCV 85.7 (80-100) fL MCH 28.2 (26-34) PG MCHC 32.9 (30-36) % RDW 13.0 (11.6-14.8) % Plt Count 229 (150-400) X10^3/uL Neut % (Auto) 80.1 H (50-75) % Lymph % (Auto) 10.3 L (25-40) % Villalba % (Auto) 7.0 (3-14) % Eos % (Auto) 1.1 L (2-4) % Baso % (Auto) 1.5 (0-2) % Neut # (Auto) 7900 H (9729-4892) /uL Lymph # (Auto) 1000 L (9706-9744) /uL Villalba # (Auto) 700 (0-900) /uL Eos # (Auto) 100 (0-450) /uL Baso # (Auto) 100 (0-100) /uL PT 24.6 H (10.1-12.7) SECONDS INR 2.2 H (0.9-1.3) APTT 38 H D (26.4-36.2) SECONDS D-Dimer (<230) ng/mL ABG pH (7.35-7.45) ABG pCO2 (35-45) mmHg ABG pO2 (80-100) mmHg ABG HCO3 (22-26) mmol/L ABG Total CO2 (21-31) mmol/L ABG O2 Saturation (95-100) % ABG Base Excess (-2-2) mmol/L FiO2 Sodium (137-145) mmol/L Potassium (3.4-5.1) mmol/L Chloride (98-107) mmol/L Carbon Dioxide (22-32) mmol/L BUN (9-20) mg/dL Creatinine (0.66-1.25) mg/dL Estimated GFR (>60) mL/min BUN/Creatinine Ratio (6-22) Glucose (70-100) mg/dL Lactate (0.7-2.1) mmol/L Calcium (8.4-10.2) mg/dL Ferritin (18-464) ng/mL Total Bilirubin (0.2-1.3) mg/dL AST (17-59) IU/L ALT (<50) IU/L Alkaline Phosphatase (38-126) U/L Lactate Dehydrogenase (313-618) U/L Total Creatine Kinase (55-170) U/L CK-MB (CK-2) (<2.37) ng/mL CK-MB (CK-2) Rel Index (1.5-5.0) % Troponin I (0.01-0.034) ng/mL C-Reactive Protein (<1.0) mg/dL NT-Pro-B Natriuret Pep (<125) pg/mL Total Protein (6.3-8.2) g/dL Albumin (3.5-5.0) g/dL Globulin (1.7-4.1) g/dL Albumin/Globulin Ratio (1.0-2.8) Lipase (23-300) U/L Procalcitonin < 0.05 (<0.5) ng/mL 06/18/20 06/18/20 06/18/20 Range/Units 13:12 13:12 13:12 WBC (4.5-11.0) X10^3/uL RBC (4.5-5.9) X10^6/uL Hgb (13.5-17.5) g/dL Hct (41-53) % MCV (80-100) fL MCH (26-34) PG MCHC (30-36) % RDW (11.6-14.8) % Plt Count (150-400) X10^3/uL Neut % (Auto) (50-75) % Lymph % (Auto) (25-40) % Villalba % (Auto) (3-14) % Eos % (Auto) (2-4) % Baso % (Auto) (0-2) % Neut # (Auto) (9544-3004) /uL Lymph # (Auto) (9441-0199) /uL Villalba # (Auto) (0-900) /uL Eos # (Auto) (0-450) /uL Baso # (Auto) (0-100) /uL PT (10.1-12.7) SECONDS INR (0.9-1.3) APTT (26.4-36.2) SECONDS D-Dimer (<230) ng/mL ABG pH (7.35-7.45) ABG pCO2 (35-45) mmHg ABG pO2 (80-100) mmHg ABG HCO3 (22-26) mmol/L ABG Total CO2 (21-31) mmol/L ABG O2 Saturation (95-100) % ABG Base Excess (-2-2) mmol/L FiO2 Sodium 135 L (137-145) mmol/L Potassium 4.3 (3.4-5.1) mmol/L Chloride 99 (98-107) mmol/L Carbon Dioxide 34 H (22-32) mmol/L BUN 19 (9-20) mg/dL Creatinine 1.03 (0.66-1.25) mg/dL Estimated GFR > 60.0 (>60) mL/min BUN/Creatinine Ratio 18.4 (6-22) Glucose 120 H (70-100) mg/dL Lactate 1.3 (0.7-2.1) mmol/L Calcium 9.0 (8.4-10.2) mg/dL Ferritin (18-464) ng/mL Total Bilirubin 0.7 (0.2-1.3) mg/dL AST 22 (17-59) IU/L ALT 15 (<50) IU/L Alkaline Phosphatase 62 (38-126) U/L Lactate Dehydrogenase (313-618) U/L Total Creatine Kinase 114 (55-170) U/L CK-MB (CK-2) 0.50 (<2.37) ng/mL CK-MB (CK-2) Rel Index 0.4 L (1.5-5.0) % Troponin I < 0.012 (0.01-0.034) ng/mL C-Reactive Protein (<1.0) mg/dL NT-Pro-B Natriuret Pep 54 (<125) pg/mL Total Protein 7.4 (6.3-8.2) g/dL Albumin 4.0 (3.5-5.0) g/dL Globulin 3.4 (1.7-4.1) g/dL Albumin/Globulin Ratio 1.2 (1.0-2.8) Lipase 63 (23-300) U/L Procalcitonin (<0.5) ng/mL 06/18/20 06/18/20 06/18/20 Range/Units 13:30 13:30 14:35 WBC (4.5-11.0) X10^3/uL RBC (4.5-5.9) X10^6/uL Hgb (13.5-17.5) g/dL Hct (41-53) % MCV (80-100) fL MCH (26-34) PG MCHC (30-36) % RDW (11.6-14.8) % Plt Count (150-400) X10^3/uL Neut % (Auto) (50-75) % Lymph % (Auto) (25-40) % Villalba % (Auto) (3-14) % Eos % (Auto) (2-4) % Baso % (Auto) (0-2) % Neut # (Auto) (0115-6226) /uL Lymph # (Auto) (3906-0985) /uL Villalba # (Auto) (0-900) /uL Eos # (Auto) (0-450) /uL Baso # (Auto) (0-100) /uL PT (10.1-12.7) SECONDS INR (0.9-1.3) APTT (26.4-36.2) SECONDS D-Dimer 408 H (<230) ng/mL ABG pH 7.47 H (7.35-7.45) ABG pCO2 39.1 (35-45) mmHg ABG pO2 80 (80-100) mmHg ABG HCO3 29 H (22-26) mmol/L ABG Total CO2 30 (21-31) mmol/L ABG O2 Saturation 97 (95-100) % ABG Base Excess 6.0 H (-2-2) mmol/L FiO2 25 Sodium (137-145) mmol/L Potassium (3.4-5.1) mmol/L Chloride (98-107) mmol/L Carbon Dioxide (22-32) mmol/L BUN (9-20) mg/dL Creatinine (0.66-1.25) mg/dL Estimated GFR (>60) mL/min BUN/Creatinine Ratio (6-22) Glucose (70-100) mg/dL Lactate (0.7-2.1) mmol/L Calcium (8.4-10.2) mg/dL Ferritin 127 (18-464) ng/mL Total Bilirubin (0.2-1.3) mg/dL AST (17-59) IU/L ALT (<50) IU/L Alkaline Phosphatase (38-126) U/L Lactate Dehydrogenase 776 H (313-618) U/L Total Creatine Kinase (55-170) U/L CK-MB (CK-2) (<2.37) ng/mL CK-MB (CK-2) Rel Index (1.5-5.0) % Troponin I (0.01-0.034) ng/mL C-Reactive Protein 5.2 H (<1.0) mg/dL NT-Pro-B Natriuret Pep (<125) pg/mL Total Protein (6.3-8.2) g/dL Albumin (3.5-5.0) g/dL Globulin (1.7-4.1) g/dL Albumin/Globulin Ratio (1.0-2.8) Lipase (23-300) U/L Procalcitonin (<0.5) ng/mL ABG Data ABG results: pH 7.479 PCO2 39.1 PO2 80 (on 2L NC O2) BE6 HCO3 29.1 Mild met alk Attestation: I personally reviewed and interpreted this ABG as follows: Imaging Data Chest x-ray: Radiologist's Impression: [place] [id number] [place] [id number] ReportSigned Patient: Brenden Rodgers AMR#: [id number]: 1965Acct:[id number]/Sex: 55 / MDate of Service: 06/18/20Loc: EDAccession Number: [id number] Procedure: XR chest 1V Ordering Provider: Fabio Ceja PROCEDURE: XR CHEST 1V INDICATIONS: suspected sepsis TECHNIQUE: One view of the chest was acquired. COMPARISON: [facility], CR, XR CHEST 1 VIEW, 06/08/2019, 3:53. [facility], CR, XR CHEST 1 VIEW, 04/07/2019, 9:55. [facility], CR, XR CHEST 1V, 03/02/2019, 14:23. FINDINGS: Surgical changes and devices: Postoperative change of the left glenoid can be seen. Lungs and pleura: An incomplete inspiratory result is noted, causing a crowded appearance to the lung markings. No pneumothorax or significant pleural effusions are seen. Minimal patchy areas of interstitial consolidation can be seen at the lung bases. Mediastinum: The cardiac contours are within normal limits. The aorta demonstrates calcification and tortuosity. Bones and chest wall: No suspicious bony lesions. Age-appropriate bony degenerative changes are seen. Overlying soft tissues appear unremarkable. IMPRESSION: Minimal patchy areas of interstitial consolidation can be seen at the lung bases. Please consider atelectasis versus atypical infiltrate, including COVID pneumonia. If clinically appropriate, a short-term followup chest series (with PA and lateral views) performed in deep inspiration is suggested for further evaluation. Dictated by: Christiano Larry M.D. on 06/18/2020 at 12:58 Approved by: Christiano Larry M.D. on 06/18/2020 at 12:59 ECG Data Attestation: I personally reviewed and interpreted this ECG as follows: Prior ECG tracings: available for review Interpretation: Normal sinus rhythm rate 99 Left dominant axis. CA interval 174, QRS duration 68, QT/QTC 304/390 Q wave in lead II, avF Similar to old EKG on 03/02/19 [facility] Narrative Medical decision making narrative: This is is 55-year-old gentleman who presents to ED with increased short of breath since he was diagnosed with COVID 13 days ago and had started symptoms a day prior and he has right chest pain since 6:00 a.m.. O2 sat lowest in low 80's not sustaining long but mostly in 88-90% in room air with wheezes. Patient is not toxic appearing. He is able to complete long sentences without difficulty. Patient's today's H&H decreased from his baseline. It is 12.9/39.2. Elevated Neutrophil 80.1% and low in lymphocytes 10.3 %. Elevated Elevated inflammatory markers with CRP of 5.2, LDH of 776. Normal ferritin of 127. Normal lactate and procalcitonin. Coag test. PT of 24.6 with INR of 2.2, APTT of 38. Patient is not currently on anticoagulants. D-dimer 408 and within normal for his age. Chemistry test shows mildly elevated CO2 of 34, sodium of 135, normal kidney function test. Normal liver function test with total bilirubin of 0.7. Cardiac enzymes were negative. ProBNP of 54. ABG is unremarkable. Chest x-ray indicates of interstitial consolidation seen at the base of lungs. Patient provided 2 L nasal cannula oxygen and was able to keep his O2 from 93-98%. Albuterol inhaler provided. Patient started on IV dexamethasone and Remdesivir 200 mg. Patient is admitted for continuation of therapy and monitor with patient has risk factors such as hypertension, COPD, obesity. <Janette Izaguirre, DO - Last Filed: 06/19/20 07:16> Lab Data Labs: Lab Results 06/18/20 06/18/20 06/18/20 Range/Units 13:12 13:12 13:12 WBC 9.9 (4.5-11.0) X10^3/uL RBC 4.57 (4.5-5.9) X10^6/uL Hgb 12.9 L (13.5-17.5) g/dL Hct 39.2 L (41-53) % MCV 85.7 (80-100) fL MCH 28.2 (26-34) PG MCHC 32.9 (30-36) % RDW 13.0 (11.6-14.8) % Plt Count 229 (150-400) X10^3/uL Neut % (Auto) 80.1 H (50-75) % Lymph % (Auto) 10.3 L (25-40) % Villalba % (Auto) 7.0 (3-14) % Eos % (Auto) 1.1 L (2-4) % Baso % (Auto) 1.5 (0-2) % Neut # (Auto) 7900 H (4109-1936) /uL Lymph # (Auto) 1000 L (3981-6731) /uL Villalba # (Auto) 700 (0-900) /uL Eos # (Auto) 100 (0-450) /uL Baso # (Auto) 100 (0-100) /uL PT 24.6 H (10.1-12.7) SECONDS INR 2.2 H (0.9-1.3) APTT 38 H D (26.4-36.2) SECONDS D-Dimer (<230) ng/mL ABG pH (7.35-7.45) ABG pCO2 (35-45) mmHg ABG pO2 (80-100) mmHg ABG HCO3 (22-26) mmol/L ABG Total CO2 (21-31) mmol/L ABG O2 Saturation (95-100) % ABG Base Excess (-2-2) mmol/L FiO2 Sodium (137-145) mmol/L Potassium (3.4-5.1) mmol/L Chloride (98-107) mmol/L Carbon Dioxide (22-32) mmol/L BUN (9-20) mg/dL Creatinine (0.66-1.25) mg/dL Estimated GFR (>60) mL/min BUN/Creatinine Ratio (6-22) Glucose (70-100) mg/dL Lactate (0.7-2.1) mmol/L Calcium (8.4-10.2) mg/dL Ferritin (18-464) ng/mL Total Bilirubin (0.2-1.3) mg/dL AST (17-59) IU/L ALT (<50) IU/L Alkaline Phosphatase (38-126) U/L Lactate Dehydrogenase (313-618) U/L Total Creatine Kinase (55-170) U/L CK-MB (CK-2) (<2.37) ng/mL CK-MB (CK-2) Rel Index (1.5-5.0) % Troponin I (0.01-0.034) ng/mL C-Reactive Protein (<1.0) mg/dL NT-Pro-B Natriuret Pep (<125) pg/mL Total Protein (6.3-8.2) g/dL Albumin (3.5-5.0) g/dL Globulin (1.7-4.1) g/dL Albumin/Globulin Ratio (1.0-2.8) Lipase (23-300) U/L Procalcitonin < 0.05 (<0.5) ng/mL 06/18/20 06/18/20 06/18/20 Range/Units 13:12 13:12 13:12 WBC (4.5-11.0) X10^3/uL RBC (4.5-5.9) X10^6/uL Hgb (13.5-17.5) g/dL Hct (41-53) % MCV (80-100) fL MCH (26-34) PG MCHC (30-36) % RDW (11.6-14.8) % Plt Count (150-400) X10^3/uL Neut % (Auto) (50-75) % Lymph % (Auto) (25-40) % [place] % (Auto) (3-14) % Eos % (Auto) (2-4) % Baso % (Auto) (0-2) % Neut # (Auto) (7932-9281) /uL Lymph # (Auto) (7373-4897) /uL [place] # (Auto) (0-900) /uL Eos # (Auto) (0-450) /uL Baso # (Auto) (0-100) /uL PT (10.1-12.7) SECONDS INR (0.9-1.3) APTT (26.4-36.2) SECONDS D-Dimer (<230) ng/mL ABG pH (7.35-7.45) ABG pCO2 (35-45) mmHg ABG pO2 (80-100) mmHg ABG HCO3 (22-26) mmol/L ABG Total CO2 (21-31) mmol/L ABG O2 Saturation (95-100) % ABG Base Excess (-2-2) mmol/L FiO2 Sodium 135 L (137-145) mmol/L Potassium 4.3 (3.4-5.1) mmol/L Chloride 99 (98-107) mmol/L Carbon Dioxide 34 H (22-32) mmol/L BUN 19 (9-20) mg/dL Creatinine 1.03 (0.66-1.25) mg/dL Estimated GFR > 60.0 (>60) mL/min BUN/Creatinine Ratio 18.4 (6-22) Glucose 120 H (70-100) mg/dL Lactate 1.3 (0.7-2.1) mmol/L Calcium 9.0 (8.4-10.2) mg/dL Ferritin (18-464) ng/mL Total Bilirubin 0.7 (0.2-1.3) mg/dL AST 22 (17-59) IU/L ALT 15 (<50) IU/L Alkaline Phosphatase 62 (38-126) U/L Lactate Dehydrogenase (313-618) U/L Total Creatine Kinase 114 (55-170) U/L CK-MB (CK-2) 0.50 (<2.37) ng/mL CK-MB (CK-2) Rel Index 0.4 L (1.5-5.0) % Troponin I < 0.012 (0.01-0.034) ng/mL C-Reactive Protein (<1.0) mg/dL NT-Pro-B Natriuret Pep 54 (<125) pg/mL Total Protein 7.4 (6.3-8.2) g/dL Albumin 4.0 (3.5-5.0) g/dL Globulin 3.4 (1.7-4.1) g/dL Albumin/Globulin Ratio 1.2 (1.0-2.8) Lipase 63 (23-300) U/L Procalcitonin (<0.5) ng/mL 06/18/20 06/18/20 06/18/20 Range/Units 13:30 13:30 14:35 WBC (4.5-11.0) X10^3/uL RBC (4.5-5.9) X10^6/uL Hgb (13.5-17.5) g/dL Hct (41-53) % MCV (80-100) fL MCH (26-34) PG MCHC (30-36) % RDW (11.6-14.8) % Plt Count (150-400) X10^3/uL Neut % (Auto) (50-75) % Lymph % (Auto) (25-40) % [place] % (Auto) (3-14) % Eos % (Auto) (2-4) % Baso % (Auto) (0-2) % Neut # (Auto) (4623-6866) /uL Lymph # (Auto) (1994-4389) /uL [place] # (Auto) (0-900) /uL Eos # (Auto) (0-450) /uL Baso # (Auto) (0-100) /uL PT (10.1-12.7) SECONDS INR (0.9-1.3) APTT (26.4-36.2) SECONDS D-Dimer 408 H (<230) ng/mL ABG pH 7.47 H (7.35-7.45) ABG pCO2 39.1 (35-45) mmHg ABG pO2 80 (80-100) mmHg ABG HCO3 29 H (22-26) mmol/L ABG Total CO2 30 (21-31) mmol/L ABG O2 Saturation 97 (95-100) % ABG Base Excess 6.0 H (-2-2) mmol/L FiO2 25 Sodium (137-145) mmol/L Potassium (3.4-5.1) mmol/L Chloride (98-107) mmol/L Carbon Dioxide (22-32) mmol/L BUN (9-20) mg/dL Creatinine (0.66-1.25) mg/dL Estimated GFR (>60) mL/min BUN/Creatinine Ratio (6-22) Glucose (70-100) mg/dL Lactate (0.7-2.1) mmol/L Calcium (8.4-10.2) mg/dL Ferritin 127 (18-464) ng/mL Total Bilirubin (0.2-1.3) mg/dL AST (17-59) IU/L ALT (<50) IU/L Alkaline Phosphatase (38-126) U/L Lactate Dehydrogenase 776 H (313-618) U/L Total Creatine Kinase (55-170) U/L CK-MB (CK-2) (<2.37) ng/mL CK-MB (CK-2) Rel Index (1.5-5.0) % Troponin I (0.01-0.034) ng/mL C-Reactive Protein 5.2 H (<1.0) mg/dL NT-Pro-B Natriuret Pep (<125) pg/mL Total Protein (6.3-8.2) g/dL Albumin (3.5-5.0) g/dL Globulin (1.7-4.1) g/dL Albumin/Globulin Ratio (1.0-2.8) Lipase (23-300) U/L Procalcitonin (<0.5) ng/mL Discharge Plan Departure Patient Disposition: Admitted As Inpatient Clinical Impression: COVID-19 Admit Date/Time: 06/18/20 14:53 Admit Provider: Viridiana Macias <Janette Izaguirre DO - Last Filed: 06/19/20 07:16> Cosign ED Attending Sbature Attestation: I was immediately available in the department for consultation. Documentation has been reviewed. I agree with assessment and plan.
[2020-06-18 14:01] LABS: C-Reactive Protein Quant 5.2 mg/dL (<1.0); Lactate Dehydrogenase 776 U/L (313-618)
[2020-06-18 14:04] LABS: NT-proBNP (BNP-Adult 18+) 54 pg/mL (<125); Troponin I < 0.012 ng/mL (0.01-0.034)
[2020-06-18 14:12] LABS: Procalcitonin < 0.05 ng/mL (<0.5)
[2020-06-18 14:22] LABS: D Dimer 408 ng/mL (<230)
[2020-06-18 14:33] LABS: Ferritin 127 ng/mL (18-464)
[2020-06-18 14:34] LABS: CKMB % Relative Index 0.4 % (1.5-5.0)
[2020-06-18] MEDS: REMDESIVIR 200 MG in SODIUM CHLORIDE 0.9% 210 ML 250 ML IV (14:59)
[2020-06-18 15:29] LABS: Bacteria Urine None Seen; RBC Urine None Seen (0-5/HPF); WBC Urine None Seen (0-5/HPF)
[2020-06-18 15:58] LABS: Appearance Urine UA CLEAR; Bilirubin Urine UA NEGATIVE (NEGATIVE); Color Urine UA YELLOW; Glucose Urine UA NEGATIVE (Negative); Ketones Urine UA TRACE (NEGATIVE); Leukocyte Esterase Urine UA NEGATIVE (NEGATIVE); Nitrite Urine UA NEGATIVE (Negative); Occult Blood Urine UA NEGATIVE (Negative); Protein Urine UA NEGATIVE (Negative); Urobilinogen Urine UA 0.2 E.U./dL (0.2)
[2020-06-18 16:01] LABS: HCO3 ABG 29 mmol/L (22-26); PCO2 ABG 39.1 mmHg (35-45); PO2 ABG 80 mmHg (80-100)
[2020-06-18 16:02] LABS: Oxygen Saturation ABG 97 % (95-100); TCO2 ABG 30 mmol/L (21-31)
[2020-06-18 16:08] LABS: Culture Indicated Urine Cult Not Indicated
--- NOTE | 2020-06-18 17:10 | PM.HP.1 ---
History of Present Illness History of Present Illness Date Patient Seen: 06/18/20 Chief complaint: +COVID, CHEST PAIN STARTED THIS MORNING Narrative: Patient is a 55-year-old male with a history of COPD and hypertension who was diagnosed with COVID-19 pneumonia 10 days ago. The patient states his symptoms started with fever, cough, shortness of breath, headache. He quarantine for 10 days but noted his symptoms became progressively worse. The patient had more shortness of breath. He continues to have a nonproductive cough. He has no further fever. Patient was seen in the walk-in clinic and referred to the emergency department. In the emergency department a chest x-ray was negative. Chest x-ray scan showed diffuse infiltrates suggestive of COVID pneumonia. The patient ambulated on room air and desaturated to 88%. He was given 1 dose of Decadron and remdesivir. The patient is admitted to the hospital for further evaluation. He has been hospitalized previously. He states he was having chest pain initially but no longer is having any pain patient initially had some diarrheal symptoms early on COVID but none currently. He reports loss of taste and smell although it is improving somewhat. Patient History Medical History COPD (chronic obstructive pulmonary disease) Dislocation of left shoulder joint Hypertension Methamphetamine use Surgical History History of shoulder surgery Family & Social History Family History Father Hypertension Heavy smoker Mother Cancer Brother Medical history unknown Social History: household members none Prior Living Arrangements RV Safety & Behavioral: Feels Safe in Current Yes Environment Been Physically Hurt or No Threatened By a Person Suicidal Ideation Description None Suicide Plan Description No Plan Tobacco & Substance use: Smoking Status Former smoker alcohol intake former alcohol intake frequency a few times a week Substance Use Type marijuana,methamphetamine Meds Home Medications and Allergies Home Medications Medication Instructions Recorded Confirmed Type albuterol sulfate [ProAir HFA] 1 puff INHALATION PRN PRN 03/02/19 06/18/20 History fluticasone propionate 1 spray INTRANASAL PRN PRN 03/02/19 06/18/20 History Allergies Allergy/AdvReac Type Severity Reaction Status Date / Time No Known Drug Allergies Allergy Verified 03/02/19 14:09 Review of Systems Review of Systems ROS: Yes All systems reviewed with the patient and are negative except as otherwise documented Exam Vital Signs (past 8 hours): - 06/18/20 12:53 06/18/20 13:25 06/18/20 13:30 Temperature 99.5 F Pulse Rate 110 H 105 H 104 H Respiratory Rate 26 H 21 29 H Blood Pressure 135/84 126/73 Pulse Oximetry 91 91 91 06/18/20 13:45 06/18/20 13:48 06/18/20 14:00 Temperature Pulse Rate 96 H 93 H 100 H Respiratory Rate 20 26 H 19 Blood Pressure 130/75 134/80 Pulse Oximetry 89 L 85 L 92 06/18/20 14:15 06/18/20 14:30 06/18/20 14:45 Temperature Pulse Rate 91 H 96 H 90 Respiratory Rate 20 21 18 Blood Pressure 127/76 Pulse Oximetry 94 96 94 06/18/20 15:00 06/18/20 15:01 06/18/20 15:15 Temperature Pulse Rate 86 90 88 Respiratory Rate 15 14 12 Blood Pressure 141/71 H Pulse Oximetry 96 98 95 06/18/20 15:30 06/18/20 15:45 06/18/20 15:59 Temperature Pulse Rate 85 85 83 Respiratory Rate 14 15 14 Blood Pressure 140/66 Pulse Oximetry 96 96 93 06/18/20 16:00 06/18/20 16:15 Temperature 98.2 F Pulse Rate 96 H Respiratory Rate 19 Blood Pressure 136/72 144/88 H Pulse Oximetry 96 Oxygen Delivery Method Nasal Cannula Oxygen Flow Rate 2 Narrative Exam Narrative: Ill-appearing male lying in bed HEENT: Normocephalic atraumatic, extraocular muscles are intact, oropharynx reveals moist mucous membranes, neck is supple Lungs reveal decreased breath sounds, coarse breath is but no wheezing noted, no rhonchi or crackles Cardiac exam: Regular rate and rhythm normal S1-S2 Abdomen: Soft nontender nondistended without hepatosplenomegaly, no palpable masses, no board-like rigidity Extremities: No edema Neuro exam: Nonfocal Skin exam: No lesions noted Psychiatric exam: No delusions, or hallucinations, Objective Labs Result Diagrams: 06/18/20 13:12 06/18/20 13:12 Labs: Laboratory Results - last 24 hr 06/18/20 06/18/20 06/18/20 13:12 13:12 13:12 WBC 9.9 RBC 4.57 Hgb 12.9 L Hct 39.2 L MCV 85.7 MCH 28.2 MCHC 32.9 RDW 13.0 Plt Count 229 Neut % (Auto) 80.1 H Lymph % (Auto) 10.3 L [place] % (Auto) 7.0 Eos % (Auto) 1.1 L Baso % (Auto) 1.5 Neut # (Auto) 7900 H Lymph # (Auto) 1000 L [place] # (Auto) 700 Eos # (Auto) 100 Baso # (Auto) 100 PT 24.6 H INR 2.2 H APTT 38 H D D-Dimer ABG pH ABG pCO2 ABG pO2 ABG HCO3 ABG Total CO2 ABG O2 Saturation ABG Base Excess FiO2 Sodium Potassium Chloride Carbon Dioxide BUN Creatinine Estimated GFR BUN/Creatinine Ratio Glucose Lactate Calcium Ferritin Total Bilirubin AST ALT Alkaline Phosphatase Lactate Dehydrogenase Total Creatine Kinase CK-MB (CK-2) CK-MB (CK-2) Rel Index Troponin I C-Reactive Protein NT-Pro-B Natriuret Pep Total Protein Albumin Globulin Albumin/Globulin Ratio Lipase Procalcitonin < 0.05 Urine Color Urine Appearance Urine pH Ur Specific [place] Urine Protein Urine Glucose (UA) Urine Ketones Urine Occult Blood Urine Nitrate Urine Bilirubin Urine Urobilinogen Ur Leukocyte Esterase Urine RBC Urine WBC Urine Bacteria Ur Culture Indicated? 06/18/20 06/18/20 06/18/20 13:12 13:12 13:12 WBC RBC Hgb Hct MCV MCH MCHC RDW Plt Count Neut % (Auto) Lymph % (Auto) [place] % (Auto) Eos % (Auto) Baso % (Auto) Neut # (Auto) Lymph # (Auto) [place] # (Auto) Eos # (Auto) Baso # (Auto) PT INR APTT D-Dimer ABG pH ABG pCO2 ABG pO2 ABG HCO3 ABG Total CO2 ABG O2 Saturation ABG Base Excess FiO2 Sodium 135 L Potassium 4.3 Chloride 99 Carbon Dioxide 34 H BUN 19 Creatinine 1.03 Estimated GFR > 60.0 BUN/Creatinine Ratio 18.4 Glucose 120 H Lactate 1.3 Calcium 9.0 Ferritin Total Bilirubin 0.7 AST 22 ALT 15 Alkaline Phosphatase 62 Lactate Dehydrogenase Total Creatine Kinase 114 CK-MB (CK-2) 0.50 CK-MB (CK-2) Rel Index 0.4 L Troponin I < 0.012 C-Reactive Protein NT-Pro-B Natriuret Pep 54 Total Protein 7.4 Albumin 4.0 Globulin 3.4 Albumin/Globulin Ratio 1.2 Lipase 63 Procalcitonin Urine Color Urine Appearance Urine pH Ur Specific [place] Urine Protein Urine Glucose (UA) Urine Ketones Urine Occult Blood Urine Nitrate Urine Bilirubin Urine Urobilinogen Ur Leukocyte Esterase Urine RBC Urine WBC Urine Bacteria Ur Culture Indicated? 06/18/20 06/18/20 06/18/20 13:30 13:30 14:35 WBC RBC Hgb Hct MCV MCH MCHC RDW Plt Count Neut % (Auto) Lymph % (Auto) [place] % (Auto) Eos % (Auto) Baso % (Auto) Neut # (Auto) Lymph # (Auto) [place] # (Auto) Eos # (Auto) Baso # (Auto) PT INR APTT D-Dimer 408 H ABG pH 7.47 H ABG pCO2 39.1 ABG pO2 80 ABG HCO3 29 H ABG Total CO2 30 ABG O2 Saturation 97 ABG Base Excess 6.0 H FiO2 25 Sodium Potassium Chloride Carbon Dioxide BUN Creatinine Estimated GFR BUN/Creatinine Ratio Glucose Lactate Calcium Ferritin 127 Total Bilirubin AST ALT Alkaline Phosphatase Lactate Dehydrogenase 776 H Total Creatine Kinase CK-MB (CK-2) CK-MB (CK-2) Rel Index Troponin I C-Reactive Protein 5.2 H NT-Pro-B Natriuret Pep Total Protein Albumin Globulin Albumin/Globulin Ratio Lipase Procalcitonin Urine Color Urine Appearance Urine pH Ur Specific [place] Urine Protein Urine Glucose (UA) Urine Ketones Urine Occult Blood Urine Nitrate Urine Bilirubin Urine Urobilinogen Ur Leukocyte Esterase Urine RBC Urine WBC Urine Bacteria Ur Culture Indicated? 06/18/20 15:05 WBC RBC Hgb Hct MCV MCH MCHC RDW Plt Count Neut % (Auto) Lymph % (Auto) [place] % (Auto) Eos % (Auto) Baso % (Auto) Neut # (Auto) Lymph # (Auto) [place] # (Auto) Eos # (Auto) Baso # (Auto) PT INR APTT D-Dimer ABG pH ABG pCO2 ABG pO2 ABG HCO3 ABG Total CO2 ABG O2 Saturation ABG Base Excess FiO2 Sodium Potassium Chloride Carbon Dioxide BUN Creatinine Estimated GFR BUN/Creatinine Ratio Glucose Lactate Calcium Ferritin Total Bilirubin AST ALT Alkaline Phosphatase Lactate Dehydrogenase Total Creatine Kinase CK-MB (CK-2) CK-MB (CK-2) Rel Index Troponin I C-Reactive Protein NT-Pro-B Natriuret Pep Total Protein Albumin Globulin Albumin/Globulin Ratio Lipase Procalcitonin Urine Color Yellow Urine Appearance Clear Urine pH 6.0 Ur Specific [place] 1.020 Urine Protein Negative Urine Glucose (UA) Negative Urine Ketones Trace H Urine Occult Blood Negative Urine Nitrate Negative Urine Bilirubin Negative Urine Urobilinogen 0.2 Ur Leukocyte Esterase Negative Urine RBC None seen Urine WBC None seen Urine Bacteria None seen Ur Culture Indicated? Cult not indicated Assessment & Plan Assessment & Plan narrative: Impression 1. 55-year-old male with a history of COPD admitted to the hospital with COVID-19 pneumonia -patient presents with acute hypoxic respiratory failure -oxygen saturation 88% with activity, O2 sat low 90s at rest -patient received remdesivir and Decadron in the emergency department, will continue -chest x-ray confirmed is interstitial infiltrate -D-dimer mildly elevated at 408 which corrected to H is normal -will continue oxygen, and current treatment -will monitor daily labs, inflammatory labs as needed 2. COPD -continue albuterol inhaler -will start Serevent inhaler -oxygen as needed -steroids will help with COPD as well -no indications for antibiotics at this time 3. Gastroesophageal reflux disease -will start proton pump inhibitor 4. Hypertension -patient currently not on treat -consider BRADY-inhibitor if blood pressure remains elevated Patient is a full code will note that his record accordingly Patient has a surrogate caregiver name Christina SawyerNahum Thurston VTE Deep Vein Thrombosis/Pulmonary Embolism Present on Admission: No
--- NOTE | 2020-06-18 17:56 | PC.NURSE ---
Addendum entered by Kalpana Villarreal R.N. 06/18/20 23:16: [place] oximeter alarming from nurse's station. Pt sound sleep with loud snoring when checked upon by this magazine writer. Oxygen level as low as 84% briefly, but rebounds to 87-88%. Increased pt's oxygen delivery to 3L per nc and notified R.T. suspect pt has sleep apnea as pt demonstrates periods of silence between snores when asleep. Pt fully awakens with movement in room and oxygen level increases to 95%. NOC RN informed and R.T. aware. Addendum entered by Kalpana Villarreal R.N. 06/18/20 22:43: Lab draw this evening. Pt taking good oral intake. Urine per urinal is lightening in color. Remains on 2L oxygen per NC with consistent oxygen levels 94-96% per continuous monitor. Addendum entered by Kalpana Villarreal R.N. 06/18/20 17:59: Per Dr. Macias, no iv fluids as pt taking oral fluids. These were provided and encouraged. Original Note: Pt to room 219 after negative pressure instituted and effectively in place. Pt arrives in mask x 2 on stretcher from E.R. Pt is able to ambulate to bathroom independently upon arrival to room. Pt's valuables follow pt to room. Pt's wallet in pants pocket not secured in hospital safe as pt in covid isolation. Pt follows commands appropriately. 02 2L per nc with continuous monitor in place 94%. Occasional harsh, loose unproductive cough. Pt reports feeling better since arrival to hospital. Dr. Macias in to see patient. Oriented to call light and demonstrates use. Oral foods and fluids provided.
[2020-06-18] MEDS: ALBUTEROL HFA MDI 60 PUFF/8 GM INHALER INH (19:44)
[2020-06-18] MEDS: FLUTICASONE/SALMETEROL 500/50 60 PUFF DISKUS INH (19:45)
[2020-06-18] MEDS: SODIUM CHLORIDE 0.9% FLUSH 10 ML IV (20:43)
[2020-06-18] MEDS: SENNOSIDES 8.6 MG TABLET 17.2 MG PO (20:43)
[2020-06-18] MEDS: DOCUSATE 100 MG CAPSULE PO (20:43)
[2020-06-18 21:39] LABS: Add Manual Diff / Slide Review NO; Basophils Absolute Auto 100 /uL (0-100); Eosinophils Absolute Auto 0 /uL (0-450); Eosinophils Percent Auto 0.5 % (2-4); Hematocrit 38.8 % (41-53); Hemoglobin 12.8 g/dL (13.5-17.5); Lymphocytes Absolute Auto 400 /uL (1100-4500); Lymphocytes Percent Auto 4.4 % (25-40); Mean Corpuscular HGB Conc 32.9 % (30-36); Mean Corpuscular Hemoglobin 28.3 PG (26-34); Mean Corpuscular Volume 85.9 fL (80-100); Monocytes Absolute Auto 200 /uL (0-900); Monocytes Percent Auto 1.7 % (3-14); Neutrophils Absolute Auto 9000 /uL (1500-7000); Neutrophils Percent Auto 92.4 % (50-75); Platelet Count 222 X10^3/uL (150-400); Red Blood Cell Count 4.51 X10^6/uL (4.5-5.9); Red Cell Distribution Width 13.1 % (11.6-14.8); White Blood Cell Count 9.7 X10^3/uL (4.5-11.0)
[2020-06-18 21:44] LABS: Blood Urea Nitrogen 18 mg/dL (9-20); Calcium 8.8 mg/dL (8.4-10.2); Carbon Dioxide 31 mmol/L (22-32); Chloride 98 mmol/L (98-107); Estimated Glomerular Filt Rate > 60.0 mL/min (>60); Glucose 182 mg/dL (70-100); HEMOLYSIS < 15 (0-50); Potassium 4.3 mmol/L (3.4-5.1); Sodium 134 mmol/L (137-145)
[2020-06-19] VITALS (11 sets, daily range): BP systolic 114–152; BP diastolic 61–94; PULSE 78–95; RESP 15–19; TEMP 36.1–37; O2SAT 93–98
[2020-06-19] MEDS: PANTOPRAZOLE 20 MG TABLET PO (05:59)
[2020-06-19] MEDS: ALBUTEROL HFA MDI 60 PUFF/8 GM INHALER INH ×3 (08:50→20:51)
[2020-06-19] MEDS: FLUTICASONE/SALMETEROL 500/50 60 PUFF DISKUS INH ×2 (08:50→20:51)
[2020-06-19] MEDS: DEXAMETHASONE 10 MG/ML VIAL 6 MG IV (09:34)
[2020-06-19] MEDS: ENOXAPARIN 40 MG/0.4 ML SYRINGE SUBCUT (09:35)
[2020-06-19] MEDS: DOCUSATE 100 MG CAPSULE PO (09:35)
[2020-06-19] MEDS: ACETAMINOPHEN 325 MG TABLET 650 MG PO ×2 (09:35→16:43)
[2020-06-19] MEDS: SODIUM CHLORIDE 0.9% FLUSH 10 ML IV ×2 (09:45→20:29)
--- NOTE | 2020-06-19 10:20 | PC.NURSE ---
Addendum entered by Maria Elena Chapman R.N. 06/19/20 12:50: Passed lunch to patient, pt on room air, O2 remains 93-98% while at rest. Low 90's with conversation. This RN noted IV had become dislodged unbeknownst to patient. New IV inserted superior to previous site. Patient tolerated. Original Note: Patient A/O x 4, very amicable and talkative. Denies SOB at this time. NC on, O2 at 3L, RR 16, intermittent non productive cough noted while in room. Encouraged patient to ambulate in the room or sit up to chair unless he notices increased WOB or SOB. Cont pulse ox on, patient fiddles with it while at rest, encouraged patient to leave it intact. SCD's removed for ambulation, will reapply after shower. Patient c/o headache, 08/27. Tylenol administered. IV saline locked in R FA, patent. Patient voiding in urinal. Call light in reach.
--- NOTE | 2020-06-19 13:57 | PM.PN.1 ---
Subjective Subjective Date Patient Seen: 06/19/20 Interval history: Patient reports he feels somewhat better today. However he does have a low oxygen saturation at rest around 90-90%. He continues to have a nonproductive cough. The patient does have a history of hypertension but is not on treatment for this. Patient has questions regarding diet and will make a referral to dietary about this. He complains of a headache but otherwise no other complaints Exam Vital Signs (past 8 hours): - 06/19/20 06:00 06/19/20 08:42 06/19/20 08:47 Temperature 98.3 F 98.6 F Pulse Rate 92 H 89 92 H Respiratory Rate 18 16 16 Blood Pressure 114/61 123/94 H Pulse Oximetry 93 94 94 06/19/20 12:25 Temperature Pulse Rate 90 Respiratory Rate 18 Blood Pressure Pulse Oximetry 94 Oxygen Delivery Method Room Air Oxygen Flow Rate 3 Narrative Exam Narrative: Ill-appearing male lying in bed Lungs: Decreased breath sounds but no crackles rhonchi or wheezes Cardiac exam: Regular rate and rhythm normal S1-S2 Abdomen: Soft nontender nondistended Extremities: No edema Objective Labs Result Diagrams: 06/18/20 21:20 06/18/20 21:20 Labs: Laboratory Results - last 24 hr 06/18/20 06/18/20 06/18/20 13:12 13:12 13:30 WBC RBC Hgb Hct MCV MCH MCHC RDW Plt Count Neut % (Auto) Lymph % (Auto) [place] % (Auto) Eos % (Auto) Baso % (Auto) Neut # (Auto) Lymph # (Auto) [place] # (Auto) Eos # (Auto) Baso # (Auto) D-Dimer 408 H ABG pH ABG pCO2 ABG pO2 ABG HCO3 ABG Total CO2 ABG O2 Saturation ABG Base Excess FiO2 Sodium Potassium Chloride Carbon Dioxide BUN Creatinine Estimated GFR BUN/Creatinine Ratio Glucose Calcium Ferritin Lactate Dehydrogenase CK-MB (CK-2) 0.50 CK-MB (CK-2) Rel Index 0.4 L Troponin I < 0.012 C-Reactive Protein NT-Pro-B Natriuret Pep 54 Procalcitonin < 0.05 Urine Color Urine Appearance Urine pH Ur Specific [place] Urine Protein Urine Glucose (UA) Urine Ketones Urine Occult Blood Urine Nitrate Urine Bilirubin Urine Urobilinogen Ur Leukocyte Esterase Urine RBC Urine WBC Urine Bacteria Ur Culture Indicated? 06/18/20 06/18/20 06/18/20 13:30 14:35 15:05 WBC RBC Hgb Hct MCV MCH MCHC RDW Plt Count Neut % (Auto) Lymph % (Auto) [place] % (Auto) Eos % (Auto) Baso % (Auto) Neut # (Auto) Lymph # (Auto) [place] # (Auto) Eos # (Auto) Baso # (Auto) D-Dimer ABG pH 7.47 H ABG pCO2 39.1 ABG pO2 80 ABG HCO3 29 H ABG Total CO2 30 ABG O2 Saturation 97 ABG Base Excess 6.0 H FiO2 25 Sodium Potassium Chloride Carbon Dioxide BUN Creatinine Estimated GFR BUN/Creatinine Ratio Glucose Calcium Ferritin 127 Lactate Dehydrogenase 776 H CK-MB (CK-2) CK-MB (CK-2) Rel Index Troponin I C-Reactive Protein 5.2 H NT-Pro-B Natriuret Pep Procalcitonin Urine Color Yellow Urine Appearance Clear Urine pH 6.0 Ur Specific [place] 1.020 Urine Protein Negative Urine Glucose (UA) Negative Urine Ketones Trace H Urine Occult Blood Negative Urine Nitrate Negative Urine Bilirubin Negative Urine Urobilinogen 0.2 Ur Leukocyte Esterase Negative Urine RBC None seen Urine WBC None seen Urine Bacteria None seen Ur Culture Indicated? Cult not indicated 06/18/20 06/18/20 21:20 21:20 WBC 9.7 RBC 4.51 Hgb 12.8 L Hct 38.8 L MCV 85.9 MCH 28.3 MCHC 32.9 RDW 13.1 Plt Count 222 Neut % (Auto) 92.4 H Lymph % (Auto) 4.4 L [place] % (Auto) 1.7 L Eos % (Auto) 0.5 L Baso % (Auto) 1.0 Neut # (Auto) 9000 H Lymph # (Auto) 400 L [place] # (Auto) 200 Eos # (Auto) 0 Baso # (Auto) 100 D-Dimer ABG pH ABG pCO2 ABG pO2 ABG HCO3 ABG Total CO2 ABG O2 Saturation ABG Base Excess FiO2 Sodium 134 L Potassium 4.3 Chloride 98 Carbon Dioxide 31 BUN 18 Creatinine 0.90 Estimated GFR > 60.0 BUN/Creatinine Ratio 20.0 Glucose 182 H Calcium 8.8 Ferritin Lactate Dehydrogenase CK-MB (CK-2) CK-MB (CK-2) Rel Index Troponin I C-Reactive Protein NT-Pro-B Natriuret Pep Procalcitonin Urine Color Urine Appearance Urine pH Ur Specific [place] Urine Protein Urine Glucose (UA) Urine Ketones Urine Occult Blood Urine Nitrate Urine Bilirubin Urine Urobilinogen Ur Leukocyte Esterase Urine RBC Urine WBC Urine Bacteria Ur Culture Indicated? [facility] Medical History COPD (chronic obstructive pulmonary disease) Dislocation of left shoulder joint Hypertension Methamphetamine use Surgical History History of shoulder surgery Family History Father Hypertension Heavy smoker Mother Cancer Brother Medical history unknown Social History household members: none Smoking Status: Former smoker alcohol intake: former Assessment & Plan Assessment & Plan narrative: Impression 1. COVID-19 pneumonia with acute hypoxic respiratory failure -patient is on day 2 of remdesivir and Decadron -he remains hypoxic at rest with a O2 sat of 90% -no wheezing on exam -patient appears to continue to be fairly symptomatic -will continue remdesivir and Decadron until he is no longer hypoxic at rest or with activity -continue nebulizer treatments as well 2. COPD chronic -patient now with acute hypoxic respiratory for -likely related to his underlying COVID pneumonia -continue treatment as -continue nebulizer 3. Hypertension -blood pressure improved significantly -will continue to monitor -will ask for dietary consultation -consider starting low-dose BRADY-inhibitor Continue DVT prophylaxis Dipika no longer hypoxic Quality VTE Deep Vein Thrombosis/Pulmonary Embolism Present on Admission: No
[2020-06-19] MEDS: REMDESIVIR 100 MG in SODIUM CHLORIDE 0.9% 230 ML 250 ML IV (14:05)
--- NOTE | 2020-06-19 14:33 | CM.DPNOTE ---
Addendum entered by Kristan Fischer 06/19/20 14:39: Demographic sheet shows father as NOK patient reports father is . Notified Admit change group via e-mail. SALVADOR Woods MSW Original Note: DCP ASSESSMENT: Patient is a cooperative 55 year-old man who was admitted to the hospital +COVID, and chest pain. Primary payer is [facility] Healthy options and Medicaid. PCP is Chanel Phillips. SALES COMMISSIONS ANALYST Student met with patient over the phone this date to complete assessment. Educated patient on the role of SW and discharge planning. Mr. Rodgers currently lives in an RV and he reports his baseline level of functioning is complete independence with all ADL?s, including driving. Patient has supports who are willing to take care of his home and provide transportation upon discharge and offer support as needed, Gemini Keyes (friend) and Henry . Patient reports friends know of COVID diagnosis. PLAN: Anticipate D/C home when he is stable. CM Team will continue to follow patient SALVADOR Dowell MSW Student Discharge Planning/Care Management CM Discharge Assessment Start: 06/19/20 14:09 Freq: Status: Active Protocol: Document 06/19/20 14:10 AL (Rec: 06/19/20 14:14 AL [id number]) Discharge Planning Assessment Assigned Assistant Producer SALVADOR Woods Contact Information Gemini Keyes (friend) # and Henry (friend) Advance Directives? No History Provided By Patient,Medical Record Has Patient been admitted in last 30 No days? Prior Living Arrangements RV Household Members none Type of transporation used prior to Drives own vehicle admit Independent with ADL's Yes Is patient alert and oriented? Yes Caregiver for Another No Barriers to Discharge No Discharge Plan Home Transportation Arrangement Patient has two friends who can provide transportation home Referrals Initiated None needed Review Status In Process
[2020-06-19 15:16] LABS: Platelet Count 250 X10^3/uL (150-400)
[2020-06-19 15:24] LABS: Hematocrit 38.1 % (41-53); Hemoglobin 12.5 g/dL (13.5-17.5); Mean Corpuscular HGB Conc 32.8 % (30-36); Mean Corpuscular Hemoglobin 28.3 PG (26-34); Mean Corpuscular Volume 86.3 fL (80-100); Red Blood Cell Count 4.41 X10^6/uL (4.5-5.9); Red Cell Distribution Width 13.1 % (11.6-14.8); White Blood Cell Count 14.8 X10^3/uL (4.5-11.0)
[2020-06-19 15:27] LABS: Add Manual Diff / Slide Review YES
[2020-06-19 15:29] LABS: BUN Creatinine Ratio 24.4 (6-22); Blood Urea Nitrogen 20 mg/dL (9-20); Calcium 9.1 mg/dL (8.4-10.2); Carbon Dioxide 29 mmol/L (22-32); Chloride 100 mmol/L (98-107); Estimated Glomerular Filt Rate > 60.0 mL/min (>60); Glucose 153 mg/dL (70-100); HEMOLYSIS < 15 (0-50); Potassium 4.3 mmol/L (3.4-5.1); Sodium 136 mmol/L (137-145)
[2020-06-19 16:16] LABS: Neutrophils Absolute Manual 13024 /uL (3000-5900); RBC Morphology Normal Morphology; Total Cells Counted 100
--- NOTE | 2020-06-19 16:19 | PC.NURSE ---
At 1515 patient requested to give [employer] debit card and keys to a friend to pay patients rent. At 1535 this TIRE INSTALLER retrieved card and keys from patient and gave them to the friend named Gemini Keyes.
--- NOTE | 2020-06-19 17:44 | PC.NURSE ---
Addendum entered by Kalpana Villarreal R.N. 06/19/20 21:41: Overnight hospitalist Elmer made aware pt now on 2.5-3L nc for sleep d/t sleep apnea. Currently 95-98%. Pt had one episode of productive sputum. Clear with several flecks of blood. Addendum entered by Kalpana Villarreal R.N. 06/19/20 20:42: Oxygen placed @ 2.5L for sleep d/t pt's stated sleep apnea without cpap use. R.T. in to administer treatment. Pt showered as per request and was independent in this action. Room air 94% per continuous monitor. Linen changed during pt's shower. BL calf scd's in place. Addendum entered by Kalpana Villarreal R.N. 06/19/20 18:47: Pt's oxygen level 91% when this literary writer entered room. Pt states to this literary writer, When my oxygen level gets low, I blow on this (acapella) and it goes up. Currently room air 94-95% after several uses of this device. Reinforced this is jesus for pt to continue this exercise while awake. Pt reports h/o sleep apnea and no cpap. Informed pt to inform staff when preparing for sleep and will place pt on oxygen overnight. Pt in agreement and acknowledges understanding of this intervention. Original Note: Pt awake and alert in bed. Is able to move all extremities independently. Room air 93-94% but as low as 90% with conversation. Oxygen level increases with rest. Does not sustain @ 90%. Continuous pulse oximeter in place. Pt admits to pain under left breast with deep inspiration. States has experienced pain like this before. Pt moves about in bed and gets up to stand @ bedside. Belches and states pain now relieved. Pt c/o headache. Tylenol administered. Excellent oral fluid intake. Pale yellow urine per urinal. Coarse breath sounds to posterior lung harris. No wheezes auscultated or audible. Pt is very conversant with staff. Covid isolation precautions observed. Pt reports easy to pass bowel movement today.
[2020-06-20] VITALS (10 sets, daily range): BP systolic 118–163; BP diastolic 71–86; PULSE 70–88; RESP 16–18; TEMP 36.2–37; O2SAT 92–97
[2020-06-20] MEDS: PANTOPRAZOLE 20 MG TABLET PO (04:57)
--- NOTE | 2020-06-20 05:08 | PC.NURSE ---
Pt given Pantoprazole rx a few minutes early in order to bundle care and reduce exposure risk. No s/sx of distress. His oxygen saturation is staying between 92-94% on 2.5LPM via NC. Denies SOB. He is calm, cooperative and appears to be in a happy mood (smiling a lot and talkative). He expressed a little concern about needing to pay his rent, but stated he had asked a friend to bring in his phone, final inspector and wallet for him.
[2020-06-20 05:29] LABS: Add Manual Diff / Slide Review NO; Basophils Absolute Auto 200 /uL (0-100); Basophils Percent Auto 1.4 % (0-2); Eosinophils Absolute Auto 0 /uL (0-450); Hematocrit 37.3 % (41-53); Hemoglobin 12.4 g/dL (13.5-17.5); Lymphocytes Absolute Auto 1400 /uL (1100-4500); Lymphocytes Percent Auto 9.5 % (25-40); Mean Corpuscular HGB Conc 33.4 % (30-36); Monocytes Absolute Auto 1000 /uL (0-900); Monocytes Percent Auto 6.6 % (3-14); Neutrophils Absolute Auto 12300 /uL (1500-7000); Neutrophils Percent Auto 82.5 % (50-75); Platelet Count 242 X10^3/uL (150-400); Red Blood Cell Count 4.29 X10^6/uL (4.5-5.9); Red Cell Distribution Width 12.9 % (11.6-14.8); White Blood Cell Count 14.9 X10^3/uL (4.5-11.0)
[2020-06-20 05:38] LABS: BUN Creatinine Ratio 25.9 (6-22); Blood Urea Nitrogen 21 mg/dL (9-20); Calcium 8.9 mg/dL (8.4-10.2); Carbon Dioxide 33 mmol/L (22-32); Chloride 101 mmol/L (98-107); Estimated Glomerular Filt Rate > 60.0 mL/min (>60); Glucose 117 mg/dL (70-100); HEMOLYSIS < 15 (0-50); Potassium 4.4 mmol/L (3.4-5.1); Sodium 137 mmol/L (137-145)
[2020-06-20] MEDS: DEXAMETHASONE 10 MG/ML VIAL 6 MG IV (07:52)
[2020-06-20] MEDS: ENOXAPARIN 40 MG/0.4 ML SYRINGE SUBCUT (07:52)
[2020-06-20] MEDS: DOCUSATE 100 MG CAPSULE PO ×2 (07:53→21:53)
[2020-06-20] MEDS: SODIUM CHLORIDE 0.9% FLUSH 10 ML IV ×2 (07:53→21:53)
[2020-06-20] MEDS: FLUTICASONE/SALMETEROL 500/50 60 PUFF DISKUS INH ×2 (08:38→21:28)
[2020-06-20] MEDS: ALBUTEROL HFA MDI 60 PUFF/8 GM INHALER INH ×2 (08:38→15:57)
--- NOTE | 2020-06-20 10:25 | PC.NURSE ---
Day shift note: Patient sleeping this am prior to assessment, O2 sat noted 99% on 2.5L via NC. Gradually weaned O2 to RA, O2 sat remain 93-94% while eating and talking, no change in breathing effort noted. Speaking in full sentences. No C/O headache, discomfort or nausea. Excellent appetite and PO intake. Patient states he feels better overall, more energy and rested. Intermittent productive cough. Up OOB voiding. Shower post breakfast. SCDs in place while in bed. Calls appropriately for staff assist.
[2020-06-20] MEDS: REMDESIVIR 100 MG in SODIUM CHLORIDE 0.9% 230 ML 250 ML IV (14:50)
--- NOTE | 2020-06-20 15:10 | DIET.PN ---
Dietary Progress Note Assessment: Mr. Rodgers is a 55-year-old male with a history of COPD and hypertension who was diagnosed with COVID-19 pneumonia 12 days ago. The patient states his symptoms started with fever, cough, shortness of breath, and headache. He experienced some chest pain which has resolved. Pt interested in learning better eating habits for weight loss and addiction. He has a pmhx significant for ETOH, nicotine, pot and meth addiction. States he is currently in rehab. He reported poor appetite since diagnosis of COVID; however appetite appears improved during this admission. Typical intake includes oatmeal w/ butter and sugar, fruit smoothies, pre-packaged salads, chicken, meatloaf, steak. He prepares his own meals and rarely eats away from home. HT: 175.26cm WT: 117.8kg UBW: na BMI: 38.4 Labs: INR: 2.2; pH: 7.47; CO2: 33; BUN: 21 MNA: 10 Erick: 19 Nutrition Diagnosis: Overweight/Obesity r/t excessive energy intake aeb BMI more than normative standards obese class II, reports overconsumption of high-fat, energy dense foods, inactivity, hx of substance abuse. Interventions: 1. Discussed heart healthy-reduced sodium nutrition therapy. 2. Provided list of heart healthy fats and proteins and list to avoid. 3. Discussed cholesterol (<200mg) and sodium (<2000mg) recommendations and how to find on a food label. 4. Reviewed simple vs complex carbohydrates and importance of fiber in diet. 5. Recommended minimum 30 min of exercise ea day for weight loss and heart health. Diet Order: heart healthy EER: 2000 dony (17 dony/kg obese); Pro 120-140g (1-1.2) Monitoring/Evaluations: weight, PO's,
--- NOTE | 2020-06-20 16:57 | PM.PN.1 ---
Subjective Subjective Date Patient Seen: 06/20/20 Interval history: Patient is 55-year-old male admitted with COVID-19 pneumonia. He is on days 3 of dexamethasone and remdesivir. Patient notes significant improvement in chest tightness and shortness of breath. His O2 sats on room air have been 93-94%. His O2 sats drop during sleep due to untreated obstructive sleep apnea. Exam Vital Signs (past 8 hours): - 06/20/20 10:55 06/20/20 12:00 06/20/20 15:57 Temperature 98.6 F 97.6 F Pulse Rate 82 Respiratory Rate 16 16 Blood Pressure 132/71 Pulse Oximetry 92 97 06/20/20 16:00 Temperature 98.2 F Pulse Rate 85 Respiratory Rate 18 Blood Pressure 124/75 Pulse Oximetry 93 Oxygen Delivery Method Room Air Oxygen Flow Rate 0 Narrative Exam Narrative: General: Alert and cooperative male in no acute distress Lungs: Clear to auscultation Extremities: No edema Objective Labs Result Diagrams: 06/20/20 04:50 06/20/20 04:50 Labs: Laboratory Results - last 24 hr 06/20/20 06/20/20 04:50 04:50 WBC 14.9 H RBC 4.29 L Hgb 12.4 L Hct 37.3 L MCV 87.0 MCH 29.0 MCHC 33.4 RDW 12.9 Plt Count 242 Neut % (Auto) 82.5 H Lymph % (Auto) 9.5 L [place] % (Auto) 6.6 Eos % (Auto) 0.0 L Baso % (Auto) 1.4 Neut # (Auto) 73278 H Lymph # (Auto) 1400 [place] # (Auto) 1000 H Eos # (Auto) 0 Baso # (Auto) 200 H Sodium 137 Potassium 4.4 Chloride 101 Carbon Dioxide 33 H BUN 21 H Creatinine 0.81 Estimated GFR > 60.0 BUN/Creatinine Ratio 25.9 H Glucose 117 H Calcium 8.9 PFSH Medical History COPD (chronic obstructive pulmonary disease) Dislocation of left shoulder joint Hypertension Methamphetamine use Surgical History History of shoulder surgery Family History Father Hypertension Heavy smoker Mother Cancer Brother Medical history unknown Social History household members: none Smoking Status: Former smoker alcohol intake: former Assessment & Plan Assessment & Plan narrative: 1. COVID-19 pneumonia with acute hypoxic respiratory failure -patient with subjective improvement in dyspnea and improving O2 sats -no longer hypoxic on room air -continue dexamethasone and remdesivir -patient can likely discharge home tomorrow if stable 2. COPD chronic -stable, use and DI inhaler as needed 3. Hypertension -blood pressure improved significantly -initiation of antihypertensive therapy deferred at this time 4. Untreated sleep apnea -outpatient sleep study recommended DVT prophylaxis: Lovenox Quality VTE Deep Vein Thrombosis/Pulmonary Embolism Present on Admission: No
[2020-06-20] MEDS: SENNOSIDES 8.6 MG TABLET 17.2 MG PO (21:53)
[2020-06-20] MEDS: MELATONIN 3 MG TABLET 6 MG PO (23:50)
[2020-06-21] VITALS (8 sets, daily range): BP systolic 107–134; BP diastolic 62–88; PULSE 74–90; RESP 16–19; TEMP 36.4–38.1; O2SAT 94–99
[2020-06-21] MEDS: ACETAMINOPHEN 325 MG TABLET 650 MG PO (00:12)
[2020-06-21] MEDS: PANTOPRAZOLE 20 MG TABLET PO (05:34)
--- NOTE | 2020-06-21 06:07 | PC.NURSE ---
Pt alert and oriented x4. Temp at 100.6 at start of night, resolved with giving tylenol. Pt desatting at night to 82%. Placed on 2L O2 throughout the night at O2 sats at 95%. Pt voiding to urinal without issues. Denies complaints
[2020-06-21] MEDS: FLUTICASONE/SALMETEROL 500/50 60 PUFF DISKUS INH (07:59)
[2020-06-21] MEDS: ALBUTEROL HFA MDI 60 PUFF/8 GM INHALER INH (07:59)
[2020-06-21] MEDS: DEXAMETHASONE 10 MG/ML VIAL 6 MG IV (08:50)
[2020-06-21] MEDS: DOCUSATE 100 MG CAPSULE PO (08:50)
[2020-06-21] MEDS: ENOXAPARIN 40 MG/0.4 ML SYRINGE SUBCUT (08:50)
[2020-06-21] MEDS: SODIUM CHLORIDE 0.9% FLUSH 10 ML IV (08:52)
--- NOTE | 2020-06-21 11:21 | PM.DS.1 ---
History of Present Illness History of Present Illness Chief complaint: +COVID, CHEST PAIN STARTED THIS MORNING Narrative: Patient is a 55-year-old male with a history of COPD and hypertension who was diagnosed with COVID-19 pneumonia 10 days ago. The patient states his symptoms started with fever, cough, shortness of breath, headache. He quarantine for 10 days but noted his symptoms became progressively worse. The patient had more shortness of breath. He continues to have a nonproductive cough. He has no further fever. Patient was seen in the walk-in clinic and referred to the emergency department. In the emergency department a chest x-ray was negative. Chest x-ray scan showed diffuse infiltrates suggestive of COVID pneumonia. The patient ambulated on room air and desaturated to 88%. He was given 1 dose of Decadron and remdesivir. The patient is admitted to the hospital for further evaluation. He has been hospitalized previously. He states he was having chest pain initially but no longer is having any pain patient initially had some diarrheal symptoms early on COVID but none currently. He reports loss of taste and smell although it is improving somewhat. 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 COVID-19 pneumonia 2. Acute hypoxic respiratory failure 3. COPD 4. Untreated severe sleep apnea-need sleep study Patient was treated for COVID pneumonia with combination dexamethasone and remdesivir. He got 3 doses of remdesivir and 4 doses of dexamethasone. His symptoms of dyspnea and chest tightness have largely resolved. O2 sat is 94% or better on room air for the past day. Patient is noted to have significant drop in O2 sats during sleep associated with loud snoring consistent with untreated obstructive sleep apnea. He is strongly advised to have PCP refer for sleep study. Status at Discharge Cognitive/behavioral status at discharge: oriented Functional status at discharge: independent ambulation Overall status at discharge: patient is progressing back to baseline Time Spent with Patient Time spent: Greater than 30 minutes Exam Vital Signs (past 8 hours): - 06/21/20 05:16 06/21/20 08:07 06/21/20 08:08 Temperature 98.0 F Pulse Rate 75 74 Respiratory Rate 16 16 Blood Pressure 107/62 Pulse Oximetry 99 96 96 06/21/20 08:59 Temperature 97.6 F Pulse Rate 90 Respiratory Rate 19 Blood Pressure 134/76 Pulse Oximetry 94 Oxygen Delivery Method Room Air Oxygen Flow Rate 0 Objective Labs Result Diagrams: 06/20/20 04:50 06/20/20 04:50 PFSH Medical History COPD (chronic obstructive pulmonary disease) Dislocation of left shoulder joint Hypertension Methamphetamine use Surgical History History of shoulder surgery Family History Father Hypertension Heavy smoker Mother Cancer Brother Medical history unknown Social History household members: none Smoking Status: Former smoker alcohol intake: former Discharge Plan Discharge Plan Patient Disposition: Home Provider Discharge Comment: You do not need to quarantine. Use mask when gathering around others outside of household. You have severe sleep apnea. Have your provider refer you for sleep study. Nursing Discharge Comment: Discharge after AM dexamethasone. Discharge orders & Medications Prescriptions: Continued albuterol sulfate [ProAir HFA] 90 mcg/actuation HFA aerosol inhaler 1 puff INHALATION PRN PRN (Reason: Shortness Of Breath) RF: 0 fluticasone propionate 50 mcg/actuation spray,suspension 1 spray INTRANASAL PRN PRN (Reason: Allergy Symptoms) RF: 0 Follow up/Referrals: Chanel Phillips MD [Primary Care Provider] - Diet/Activity/Treatments Diet: Regular Visit Report/Discharge Packet Instructions: Pneumonia-Adult, DI for COVID-19 (Suspected or Confirmed ) Discharge Data Primary Care Provider: Chanel Phillips Quality VTE Deep Vein Thrombosis/Pulmonary Embolism Present on Admission: No
--- NOTE | 2020-06-21 11:30 | PC.NURSE ---
Pt education given, discussed- Pneumonia education, COVID education and precautions, medication safety, nutrition, f/u appts, s/s of stroke, s/s of worsening symptoms and reasons to seek medical attention. Pt expressed understanding of instructions/education. IV removed, intact, tolerated well. Pt left via w/c by CLAUDIA Mckinley, to ER entrance where friend, Henry, picked him up in POV.
[2020-06-24 13:04] LABS: pH ABG 7.48 (7.35-7.45)
[2020-06-24 13:05] LABS: Fractionated Inspired Oxygen 28
== END 2020-06-21 11:20 | disposition home or self-care (01) | DRG 137 ==
LOC: ED 14:44 → AC 14:54
PROVIDERS: Admitting Provider Internal Medicine; Emergency Provider Nurse Practitioner Family; PCP Family Medicine; Referring Provider Emergency Medicine; Visit Provider Internal Medicine
DX: U07.1 COVID-19 (principal); J12.82 Pneumonia due to coronavirus disease 2019; J96.01 Acute respiratory failure with hypoxia; J44.9 Chronic obstructive pulmonary disease, unspecified; K21.9 Gastro-esophageal reflux disease without esophagitis; I10 Essential (primary) hypertension; G47.30 Sleep apnea, unspecified; E66.9 Obesity, unspecified; Z87.891 Personal history of nicotine dependence; Z68.38 Body mass index [BMI] 38.0-38.9, adult
CPT/HCPCS: 36415; 36600; 71045; 80048; 80053; 81001; 82550; 82553; 82728; 82805; 82962; 83605; 83615; 83690; 83880; 84145; 84484; 85007; 85025; 85379; 85610; 85730; 86140; 87040; 93005; 94640; 94668; 94762; 96361; 96365; 96375; 99284; 99285; A9270; J1100; J1650